=== PATIENT | male | born 1975 | race Caucasian/White ===

== ENCOUNTER 2018-01-07 14:08 | Inpatient (IN) | payer BC ==
[2018-01-07] MEDS: IV NORMAL SALINE 1000ML BAG 1,000 ML IV (15:04)
[2018-01-07] MEDS: FOSPHENYTOIN IV (15:05)
[2018-01-07] MEDS: NORMAL SALINE IV (15:05)
[2018-01-07 15:09] LABS: ADD MAN DIFF? NO
[2018-01-07 15:13] LABS: BASO % 0 % (0-3); EOS # 0.1 x10^3/uL (0.0-0.7); EOS % 1 % (0-3); HEMATOCRIT 41.2 % (39.0-53.0); HEMOGLOBIN 13.9 g/dL (13.0-17.5); LYMPH # 0.7 x10^3/uL (1.0-4.8); LYMPH % 10 % (24-48); MEAN CORPUSCULAR HEMOGLOBIN 34 pg (25-35); MEAN CORPUSCULAR HGB CONC 34 g/dL (31-37); MEAN CORPUSCULAR VOLUME 101 fL (79-100); MONO # 0.5 x10^3/uL (0.0-1.1); MONO % 8 % (0-9); NEUT # 5.2 x10^3uL (1.8-7.7); NEUT % 81 % (31-73); PLATELET COUNT 101 x10^3/uL (140-400); RED CELL DISTRIBUTION WIDTH 12.9 % (11.5-14.5); WHITE BLOOD COUNT 6.5 x10^3/uL (4.0-11.0)
[2018-01-07 15:24] LABS: ANION GAP 22 (6-14); BLOOD UREA NITROGEN 7 mg/dL (8-26); CALCIUM 9.5 mg/dL (8.5-10.1); CARBON DIOXIDE 20 mmol/L (21-32); CHLORIDE 90 mmol/L (98-107); CREATININE 1.3 mg/dL (0.7-1.3); GFR 60.5; GLUCOSE 253 mg/dL (70-99); POTASSIUM 3.8 mmol/L (3.5-5.1); SODIUM 132 mmol/L (136-145)
[2018-01-07 15:28] LABS: SALIC < 2.8 mg/dL (2.8-20.0)
[2018-01-07 15:29] LABS: ACETAMIN < 2 mcg/ml (10-30); ETHANOL < 10 mg/dL (0-10)
[2018-01-07 15:30] LABS: ALBUMIN 4.6 g/dL (3.4-5.0); ALK PHOS 80 U/L (46-116); ALT (SGPT) 73 U/L (16-63); AST (SGOT) 100 U/L (15-37); DIRECT BILIRUBIN 0.4 mg/dL (0.0-0.2); TOTAL BILIRUBIN 2.1 mg/dL (0.2-1.0); TOTAL PROTEIN 8.1 g/dL (6.4-8.2)
[2018-01-07 15:35] LABS: BILIRUBIN,URINE NEGATIVE (NEG); CLARITY,URINE CLEAR; COLOR,URINE YELLOW; GLUCOSE,URINE 500 mg/dL (NEG); NITRITE,URINE NEGATIVE (NEG); PH,URINE 7.5; PROTEIN,URINE 100 mg/dL (NEG-TRACE); UROBILINOGEN,URINE 0.2 mg/dL (0.2 mg/dL)
[2018-01-07 15:45] LABS: AMPHETAMINE/METHAMPHETAMINE NEG (NEG); BARBITURATES NEG (NEG); BENZODIAZEPINES NEG (NEG); CANNABINOIDS NEG (NEG); COCAINE NEG (NEG); ETHANOL, URINE NEG (NEG); METHADONE NEG (NEG); OPIATES NEG (NEG); PHENCYCLIDINE NEG (NEG)
[2018-01-07 15:53] LABS: LACTIC ACID 12.2 mmol/L (0.4-2.0)
[2018-01-07 15:58] LABS: BACTERIA,URINE 0 /HPF (0-FEW); RBC,URINE OCC /HPF (0-2); WBC,URINE OCC /HPF (0-4)
[2018-01-07 15:59] LABS: HYALINE CASTS, URINE MODERATE /HPF
[2018-01-07] MEDS ORDERED: ONDANSETRON PF 4 MG/2 ML VIAL. IV ×2 (16:00→17:00)
[2018-01-07 16:01] LABS: MAGNESIUM 1.9 mg/dL (1.8-2.4)
[2018-01-07 16:01] LABS: PHOSPHORUS 4.1 mg/dL (2.6-4.7)
[2018-01-07 16:02] LABS: AMMONIA 98 mcmol/L (11-34)
[2018-01-07 16:29] LABS: BASE EXCESS ABG -1 mmol/L (-3-3); HCO3 ABG 24 mmol/L (21-28); PCO2 ABG 38 mmHg (35-46); PH ABG 7.41 (7.35-7.45); PO2 ABG 79 mmHg (75-108); SAT O2 ABG 95 % (92-99)
[2018-01-07 16:31] LABS: FIO2 ABG 21
[2018-01-07] MEDS ORDERED: IOHEXOL 300 MG/ML 100ML VIAL. IV (16:45)
[2018-01-07] MEDS ORDERED: CONTRAST GIVEN MC (16:45)
[2018-01-07 16:53] LABS: LIPASE 124 U/L (73-393)
[2018-01-07] MEDS ORDERED: DOCUSATE SODIUM 100 MG CAPSULE. PO (17:00)
[2018-01-07] MEDS ORDERED: ALBUTEROL SULFATE 2.5 MG/3 ML NEBU. NEB (17:00)
[2018-01-07] MEDS ORDERED: hydrALAZINE 20 MG/ML VIAL. IVP (17:00)
[2018-01-07 17:08] LABS: LACTIC ACID 5.2 mmol/L (0.4-2.0)
[2018-01-07] MEDS: GADOBUTROL 7.5 MMOL/7.5 ML VIAL IV (18:09)
[2018-01-07] MEDS: MULTIVIT INFUSN,ADULT 4,VIT K 10 ML, THIAMINE 100 MG, FOLIC ACID 1 MG in IV DEXTROSE 5%... IV (18:45)
[2018-01-07] MEDS: MORPHINE SULFATE 4 MG/ML DISP.SYRIN. IV ×2 (18:52→21:25)
[2018-01-07 19:08] LABS: TROPONINI < 0.017 ng/mL (0.000-0.055)
[2018-01-07 19:11] LABS: CKMB INDEX 0.4 % (0-4); CKMB MASS 0.8 ng/mL (0.0-3.6); CREATINE KINASE 187 U/L (39-308)
[2018-01-07 19:13] LABS: VITAMIN-B12 987 pg/mL (247-911)
[2018-01-07 19:20] LABS: LACTIC ACID 1.8 mmol/L (0.4-2.0)
[2018-01-07] MEDS: levETIRAcetam 500 MG TABLET PO (19:52)
[2018-01-07] MEDS: oxyCODONE/APAP 5/325 1 TAB TABLET PO (19:52)
[2018-01-07] MEDS: FAMOTIDINE 20 MG/2 ML VIAL IVP (19:52)
[2018-01-07 23:37] LABS: TROPONINI < 0.017 ng/mL (0.000-0.055)
[2018-01-08] MEDS: oxyCODONE/APAP 5/325 1 TAB TABLET PO (02:12)
[2018-01-08 03:56] LABS: ADD MAN DIFF? NO
[2018-01-08 04:12] LABS: BASO % 1 % (0-3); EOS # 0.1 x10^3/uL (0.0-0.7); EOS % 2 % (0-3); HEMATOCRIT 32.2 % (39.0-53.0); HEMOGLOBIN 11.1 g/dL (13.0-17.5); LYMPH % 26 % (24-48); MEAN CORPUSCULAR HEMOGLOBIN 34 pg (25-35); MEAN CORPUSCULAR HGB CONC 34 g/dL (31-37); MEAN CORPUSCULAR VOLUME 99 fL (79-100); MONO # 0.5 x10^3/uL (0.0-1.1); MONO % 15 % (0-9); NEUT % 56 % (31-73); PLATELET COUNT 64 x10^3/uL (140-400); RED BLOOD COUNT 3.26 x10^6/uL (4.30-5.70); RED CELL DISTRIBUTION WIDTH 12.8 % (11.5-14.5); WHITE BLOOD COUNT 3.6 x10^3/uL (4.0-11.0)
[2018-01-08 04:24] LABS: ANION GAP 6 (6-14); BLOOD UREA NITROGEN 4 mg/dL (8-26); CALCIUM 8.8 mg/dL (8.5-10.1); CARBON DIOXIDE 29 mmol/L (21-32); CHLORIDE 102 mmol/L (98-107); CREATININE 0.8 mg/dL (0.7-1.3); GLUCOSE 130 mg/dL (70-99); POTASSIUM 3.2 mmol/L (3.5-5.1); SODIUM 137 mmol/L (136-145)
[2018-01-08 04:38] LABS: ALBUMIN 3.6 g/dL (3.4-5.0); ALK PHOS 52 U/L (46-116); ALT (SGPT) 50 U/L (16-63); AST (SGOT) 50 U/L (15-37); DIRECT BILIRUBIN 0.4 mg/dL (0.0-0.2); TOTAL BILIRUBIN 2.3 mg/dL (0.2-1.0); TOTAL PROTEIN 6.6 g/dL (6.4-8.2)
[2018-01-08] MEDS: POTASSIUM CL 20MEQ D5-0.9%NACL 1,000 ML IV ×3 (04:52→23:08)
[2018-01-08] MEDS: MULTIVIT INFUSN,ADULT 4,VIT K 10 ML, THIAMINE 100 MG, FOLIC ACID 1 MG in IV DEXTROSE 5%... IV (08:22)
[2018-01-08] MEDS: levETIRAcetam 500 MG TABLET PO ×2 (08:24→20:23)
[2018-01-08] MEDS: traMADol 50 MG TABLET PO ×2 (09:24→18:07)
[2018-01-08] MEDS: LORazepam 1 MG TABLET PO ×2 (11:46→20:23)
[2018-01-08] MEDS ORDERED: MINERAL OIL/PETROLATUM,WHITE OPHTH OINT 3.5GM TUBE. OU (16:45)
[2018-01-08 18:18] LABS: MRSA BY PCR Negative (Negative)
[2018-01-08] MEDS: FAMOTIDINE 20 MG/2 ML VIAL IVP (20:23)
[2018-01-09] MEDS: traMADol 50 MG TABLET PO ×3 (00:12→17:55)
[2018-01-09] MEDS: POTASSIUM CL 20MEQ D5-0.9%NACL 1,000 ML IV ×2 (00:13→20:21)
[2018-01-09] MEDS: LORazepam 1 MG TABLET PO ×3 (04:39→20:21)
[2018-01-09] MEDS: oxyCODONE/APAP 5/325 1 TAB TABLET PO ×3 (04:39→23:17)
[2018-01-09] MEDS: levETIRAcetam 500 MG TABLET PO ×2 (07:59→20:21)
[2018-01-09] MEDS: ACETAMINOPHEN 325 MG TABLET. PO (07:59)
[2018-01-09] MEDS: MULTIVIT INFUSN,ADULT 4,VIT K 10 ML, THIAMINE 100 MG, FOLIC ACID 1 MG in IV DEXTROSE 5%... IV (09:58)
[2018-01-10 05:21] LABS: ADD MAN DIFF? NO
[2018-01-10 05:32] LABS: BASO % 1 % (0-3); EOS # 0.2 x10^3/uL (0.0-0.7); EOS % 5 % (0-3); HEMATOCRIT 32.4 % (39.0-53.0); HEMOGLOBIN 11.2 g/dL (13.0-17.5); LYMPH # 1.1 x10^3/uL (1.0-4.8); LYMPH % 34 % (24-48); MEAN CORPUSCULAR HEMOGLOBIN 35 pg (25-35); MEAN CORPUSCULAR HGB CONC 35 g/dL (31-37); MEAN CORPUSCULAR VOLUME 101 fL (79-100); MONO # 0.5 x10^3/uL (0.0-1.1); MONO % 14 % (0-9); NEUT # 1.5 x10^3uL (1.8-7.7); NEUT % 47 % (31-73); PLATELET COUNT 69 x10^3/uL (140-400); RED BLOOD COUNT 3.22 x10^6/uL (4.30-5.70); RED CELL DISTRIBUTION WIDTH 12.8 % (11.5-14.5); WHITE BLOOD COUNT 3.3 x10^3/uL (4.0-11.0)
[2018-01-10] MEDS: POTASSIUM CL 20MEQ D5-0.9%NACL 1,000 ML IV (05:42)
[2018-01-10] MEDS: traMADol 50 MG TABLET PO ×2 (05:43→14:42)
[2018-01-10 05:47] LABS: ANION GAP 7 (6-14); BLOOD UREA NITROGEN 2 mg/dL (8-26); CALCIUM 9.3 mg/dL (8.5-10.1); CARBON DIOXIDE 29 mmol/L (21-32); CHLORIDE 104 mmol/L (98-107); CREATININE 0.8 mg/dL (0.7-1.3); GLUCOSE 118 mg/dL (70-99); POTASSIUM 3.5 mmol/L (3.5-5.1); SODIUM 140 mmol/L (136-145)
[2018-01-10] MEDS: FOLIC ACID 1 MG TABLET. PO (08:13)
[2018-01-10] MEDS: levETIRAcetam 500 MG TABLET PO (08:13)
[2018-01-10] MEDS: THIAMINE 100 MG TABLET. PO (08:13)
[2018-01-10] MEDS: oxyCODONE/APAP 5/325 1 TAB TABLET PO (11:42)
[2018-01-10] MEDS: LORazepam 1 MG TABLET PO (13:22)
== END 2018-01-10 15:00 | disposition home or self-care (01) | DRG 896 ==
LOC: ER 14:08 → 6 SOUTH 01-08 18:00 → 1 WEST ICU 15:30
DX: F10.239 Alcohol dependence with withdrawal, unspecified (principal); J96.01 Acute respiratory failure with hypoxia; G92 Toxic encephalopathy; D69.6 Thrombocytopenia, unspecified; E87.2 Acidosis; R17 Unspecified jaundice; R65.10 Systemic inflammatory response syndrome (SIRS) of non-infectious origin without acute organ dysfunction; S42.92XA Fracture of left shoulder girdle, part unspecified, initial encounter for closed fracture; S42.122A Displaced fracture of acromial process, left shoulder, initial encounter for closed fracture; F17.210 Nicotine dependence, cigarettes, uncomplicated; J44.9 Chronic obstructive pulmonary disease, unspecified; S00.03XA Contusion of scalp, initial encounter; R74.0 Nonspecific elevation of levels of transaminase and lactic acid dehydrogenase [LDH]; W10.9XXA Fall (on) (from) unspecified stairs and steps, initial encounter; Z79.899 Other long term (current) drug therapy; Z82.49 Family history of ischemic heart disease and other diseases of the circulatory system; Y93.89 Activity, other specified; Y92.89 Other specified places as the place of occurrence of the external cause; Y99.8 Other external cause status
CPT/HCPCS: 36415; 36600; 51702; 70450; 70553; 71045; 71260; 72125; 74177; 80048; 80076; 80307; 80329; 81001; 82140; 82553; 82607; 82805; 83605; 83690; 83735; 84100; 84484; 85025; 87641; 93005; 95816; 96374; 96375; 99291; 99292; A9585; G0480; J2060; J2270; J7030; Q2009; S0028

== ENCOUNTER 2021-12-18 10:36 | Inpatient (IN) | payer SELFPAY ==
[2021-12-18] VITALS (9 sets, daily range): BP systolic 125–145; BP diastolic 86–103
[~2021-12-18] VITALS: Ht 172.7 cm; Wt 60.8 kg
[~2021-12-18 10:36] MED LIST: LEVE500T56 PO; LORA0.5T96 PO; TRAM50TA PO
[2021-12-18] MEDS ORDERED: IV NORMAL SALINE 1000ML BAG 1,000 ML IV ONE (11:00)
--- NOTE | 2021-12-18 11:10 | EKG ---
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
[2021-12-18 11:13] LABS: CALCIUM 9.9 mg/dL (8.5-10.1); CREATININE 1.8 mg/dL (0.7-1.3); GFR 40.8; POTASSIUM 4.2 mmol/L (3.5-5.1)
[2021-12-18 11:20] LABS: BASO # 0.1 x10^3/uL (0.0-0.2); BASO % 1 % (0-3); EOS % 0 % (0-3); HEMATOCRIT 38.7 % (39.0-53.0); HEMOGLOBIN 12.7 g/dL (13.0-17.5); LYMPH # 0.6 x10^3/uL (1.0-4.8); LYMPH % 5 % (24-48); MEAN CORPUSCULAR HEMOGLOBIN 32 pg (25-35); MEAN CORPUSCULAR HGB CONC 33 g/dL (31-37); MEAN CORPUSCULAR VOLUME 98 fL (79-100); MONO # 0.5 x10^3/uL (0.0-1.1); MONO % 4 % (0-9); NEUT # 12.1 x10^3/uL (1.8-7.7); NEUT % 91 % (31-73); PLATELET COUNT 182 x10^3/uL (140-400); RED BLOOD COUNT 3.95 x10^6/uL (4.30-5.70); RED CELL DISTRIBUTION WIDTH 14.8 % (11.5-14.5); WHITE BLOOD COUNT 13.4 x10^3/uL (4.0-11.0)
[2021-12-18 11:23] LABS: ALBUMIN 4.5 g/dL (3.4-5.0); ALBUMIN/GLOBULIN RATIO 0.9 (1.0-1.7); TOTAL BILIRUBIN 1.4 mg/dL (0.2-1.0); TOTAL PROTEIN 9.3 g/dL (6.4-8.2)
[2021-12-18 11:27] LABS: BARBITURATES NEG (NEG); BENZODIAZEPINES POS (NEG); CANNABINOIDS NEG (NEG); COCAINE NEG (NEG); METHADONE NEG (NEG); OPIATES NEG (NEG); PHENCYCLIDINE NEG (NEG)
[2021-12-18 11:30] LABS: AMPHETAMINE/METHAMPHETAMINE NEG (NEG)
[2021-12-18] MEDS ORDERED: MULTIVIT INFUSN,ADULT 4,VIT K 10 ML, THIAMINE INJ 100 MG, FOLIC ACID INJ 1 MG in IV NOR... IV ONE (11:30)
--- NOTE | 2021-12-18 11:54 | RAD ---
PQRS Compliance Statement: One or more of the following individualized dose reduction techniques were utilized for this examinat ion: 1. Automated exposure control 2. Adjustment of the mA and/or kV according to patient size 3. Use of iterative reconstruction technique CT HEAD AND CERVICAL SPINE WITHOUT CONTRAST History: Reason: intoxicated, having a seizure, found on floor, ams Comparison: CT head and cervical spine without contrast, January 07, 2018. Procedure: Axial images are obtained of the head from the skull base through the vertex without IV co ntrast. Noncontrast helical CT of the cervical spine was performed. Axial, sagittal, and coronal rec onstructions were obtained. Findings: The ventricles and sulci are normal for the patient's age. No mass-effect, midline shift, hemorrhage or obvious acute infarction is identified. Basilar cistern s are patent. Bone windows demonstrate no significant calvarial abnormality. The visualized paranasal sinuses are clear. Mastoid air cells are well aerated. There is no evidence of acute fracture or acute malalignment of the cervical spine. The facet joints are intact. The vertebral body height and alignment are maintained. No disc space na rrowing is seen. There is degenerative endplate spurring in the cervical spine. There is mildly comminuted, nondisplaced fracture of the medial left clavicle. Fracture is age-indete rminate, the fracture lines are well seen but there is mild sclerosis suggesting the fracture may be subacute. Visualized soft tissues of the neck demonstrate no significant abnormalities. The visualized lung api radha are clear. IMPRESSION: 1. No acute intracranial abnormality. 2. No acute fracture of the cervical spine. 3. There is age-indeterminate mildly comminuted, nondisplaced fracture of the medial left clavicle. Electronically signed by: Omari Negrete MD (12/18/2021 11:52 AM) [id number]
--- NOTE | 2021-12-18 11:54 | PHYS DOC ---
Past Medical History Past Medical History: Alcoholism, Seizure Additional Past Medical Histor: ALCOHOL ABUSE Past Surgical History: Other Additional Past Surgical Histo: UNKNOWN Smoking Status: Unknown if ever smoked Alcohol Use: Heavy Drug Use: None General Adult EDM: Chief Complaint: SEIZURE HPI: HPI: Patient is a 46 year old male who was found on the floor this morning by girlfriend having a seizure. Patient had a history of seizure disorder, he was recently taken off Keppra and put on a different medication for seizures but he has not taken it yet. Patient also has been drinking alcohol heavily. Patient girlfriend stated that patient would have seizure after he went through a drinking binge. EMS stated that he was found on the floor with vomitus all over his body. Patient was given 5 mg Versed IM by EMS on route. Upon arrival to E , patient was sedated. He was covered with vomitus, sweaty, tachycardic. Review of Systems: Review of Systems: Not able to obtain at this time due to patient condition Heart Score: C/O Chest Pain: N/A Risk Factors: Risk Factors: DM, Current or recent (<one month) smoker, HTN, HLP, family history of CAD, obesity. Risk Scores: Score 0 - 3: 2.5% MACE over next 6 weeks - Discharge Home Score 4 - 6: 20.3% MACE over next 6 weeks - Admit for Clinical Observation Score 7 - 10: 72.7% MACE over next 6 weeks - Early Invasive Strategies Current Medications: Current Medications Medications (Trade) Dose Ordered Sig/Candi Start Time Stop Time Status Last Admin Dose Admin Lorazepam (Ativan Inj) 1 mg 1X ONCE 12/18/21 11:30 12/18/21 11:31 DC 12/18/21 11:47 1 MG Multivitamins 10 ml/Thiamine HCl 100 mg/Folic Acid 1 mg/Sodium Chloride 1,011.2 ml @ 1,000.088 mls/hr 1X ONCE 12/18/21 11:30 12/18/21 12:30 Ondansetron HCl (Zofran) 4 mg PRN Q8HRS PRN 12/18/21 12:00 12/19/21 11:59 Sodium Chloride 1,000 ml @ 100 mls/hr Q10H 12/18/21 12:00 12/19/21 11:59 Allergies: Allergies: Allergies Coded Allergies Type Severity Reaction Last Updated Verified No Known Drug Allergies 04/20/14 No Physical Exam: PE: Constitutional: Well developed, well nourished, no acute distress, non-toxic appearance. [] HENT: Normocephalic, right side forehead and eyebrown area with skin contusion, bilateral external ears normal, oropharynx moist, no oral exudates, nose n ormal. [] Eyes: PERRLA, EOMI, conjunctiva normal, no discharge. [] Neck: Normal range of motion, no tenderness, supple, no stridor. [] Cardiovascular: Sinus tachycardia, regular rhythm, no murmur [] Lungs & Thorax: Bilateral breath sounds clear to auscultation [] Abdomen: Bowel sounds normal, soft, no tenderness, no masses, no pulsatile masses. [] Skin: Warm, dry, no erythema, no rash. [] Back: No tenderness, no CVA tenderness. [] Extremities: No tenderness, no cyanosis, no clubbing, ROM intact, no edema. [] Neurologic:patient was able to open his eyes to look around, observed moving all extremities. Psychologic:not able to evaluate at this time due to condition. Current Patient Data: Labs: Laboratory Tests Test 12/18/21 10:45 12/18/21 10:50 12/18/21 11:12 White Blood Count 13.4 x10^3/uL (4.0-11.0) H Red Blood Count 3.95 x10^6/uL (4.30-5.70) L Hemoglobin 12.7 g/dL (13.0-17.5) L Hematocrit 38.7 % (39.0-53.0) L Mean Corpuscular Volume 98 fL (79-100) Mean Corpuscular Hemoglobin 32 pg (25-35) Mean Corpuscular Hemoglobin Concent 33 g/dL (31-37) Red Cell Distribution Width 14.8 % (11.5-14.5) H Platelet Count 182 x10^3/uL (140-400) Neutrophils (%) (Auto) 91 % (31-73) H Lymphocytes (%) (Auto) 5 % (24-48) L Monocytes (%) (Auto) 4 % (0-9) Eosinophils (%) (Auto) 0 % (0-3) Basophils (%) (Auto) 1 % (0-3) Neutrophils # (Auto) 12.1 x10^3/uL (1.8-7.7) H Lymphocytes # (Auto) 0.6 x10^3/uL (1.0-4.8) L Monocytes # (Auto) 0.5 x10^3/uL (0.0-1.1) Eosinophils # (Auto) 0.0 x10^3/uL (0.0-0.7) Basophils # (Auto) 0.1 x10^3/uL (0.0-0.2) Sodium Level 136 mmol/L (136-145) Potassium Level 4.2 mmol/L (3.5-5.1) Chloride Level 94 mmol/L (98-107) L Carbon Dioxide Level 17 mmol/L (21-32) L Anion Gap 25 (6-14) H Blood Urea Nitrogen 9 mg/dL (8-26) Creatinine 1.8 mg/dL (0.7-1.3) H Estimated GFR (Cockcroft-Gault) 40.8 BUN/Creatinine Ratio 5 (6-20) L Glucose Level 148 mg/dL (70-99) H Calcium Level 9.9 mg/dL (8.5-10.1) Magnesium Level 2.0 mg/dL (1.8-2.4) Total Bilirubin 1.4 mg/dL (0.2-1.0) H Aspartate Amino Transferase (AST) 236 U/L (15-37) H Alanine Aminotransferase (ALT) 85 U/L (16-63) H Alkaline Phosphatase 121 U/L (46-116) H Troponin I High Sensitivity 24 ng/L (4-75) Total Protein 9.3 g/dL (6.4-8.2) H Albumin 4.5 g/dL (3.4-5.0) Albumin/Globulin Ratio 0.9 (1.0-1.7) L Lipase 197 U/L (73-393) Ethyl Alcohol Level < 10 mg/dL (0-10) Glucose (Fingerstick) 124 mg/dL (70-99) H Urine Opiates Screen Neg (NEG) Urine Methadone Screen Neg (NEG) Urine Barbiturates Neg (NEG) Urine Phencyclidine Screen Neg (NEG) Urine Amphetamine/Methamphetamine Neg (NEG) Urine Benzodiazepines Screen Pos (NEG) Urine Cocaine Screen Neg (NEG) Urine Cannabinoids Screen Neg (NEG) Urine Ethyl Alcohol Pos (NEG) Laboratory Tests 12/18/21 10:45 Laboratory Tests 12/18/21 10:45 Vital Signs: Vital Signs Date Time Temp Pulse Resp B/P (MAP) Pulse Ox O2 Delivery O2 Flow Rate FiO2 12/18/21 10:36 98.2 150 16 126/80 (95) 100 Nasal Cannula 3.0 98.2 EKG: EKG: EKG was done at 1043, heart rate 153 bpm, sinus tachycardia, no ST segment elevation. Radiology/Procedures: Radiology/Procedures: [][facility] [address] [place] [address] IMAGING REPORT Signed PATIENT: SHERINE MCINTOSH ACCOUNT: [id number] : 1975 LOCATION: ER AGE: 46 SEX: M EXAM STATUS: REG ER ORD. PHYSICIAN: CRAIG CAMPOS DO REASON: intoxicated, having a seizure, found on floor, ams PROCEDURE: CT HEAD AND CERVICAL SPINE WO PQRS Compliance Statement: One or more of the following individualized dose reduction techniques were utilized for this examination: 1. Automated exposure control 2. Adjustment of the mA and/or kV according to patient size 3. Use of iterative reconstruction technique CT HEAD AND CERVICAL SPINE WITHOUT CONTRAST History: Reason: intoxicated, having a seizure, found on floor, ams Comparison: CT head and cervical spine without contrast, January 07, 2018. Procedure: Axial images are obtained of the head from the skull base through the vertex without IV contrast. Noncontrast helical CT of the cervical spine was performed. Axial, sagittal, and coronal reconstructions were obtained. Findings: The ventricles and sulci are normal for the patient's age. No mass-effect, midline shift, hemorrhage or obvious acute infarction is identified. Basilar cisterns are patent. Bone windows demonstrate no significant calvarial abnormality. The visualized paranasal sinuses are clear. Mastoid air cells are well aerated. There is no evidence of acute fracture or acute malalignment of the cervical spine. The facet joints are intact. The vertebral body height and alignment are m aintained. No disc space narrowing is seen. There is degenerative endplate spurring in the cervical spine. There is mildly comminuted, nondisplaced fracture of the medial left clavicle. Fracture is age-indeterminate, the fracture lines are well seen but there is mild sclerosis suggesting the fracture may be subacute. Visualized soft tissues of the neck demonstrate no significant abnormalities. T he visualized lung apices are clear. IMPRESSION: 1. No acute intracranial abnormality. 2. No acute fracture of the cervical spine. 3. There is age-indeterminate mildly comminuted, nondisplaced fracture of the medial left clavicle. Electronically signed by: Omari Negrete MD (12/18/2021 11:52 AM) [id number] DICTATED and SIGNED BY: OMARI NEGRETE MD DATE: 12/18/21 [id number] 0 Course & Med Decision Making: Course & Med Decision Making Pertinent Labs and Imaging studies reviewed. (See chart for details) Patient is a 46-year-old male who was brought here by EMS from home after he fell on the floor having a seizure. Patient had a history of seizure disorder, he supposed to be on antiseizure medication but he did not take any medication for it. Patient also has history of withdrawal seizure from alcohol. Patient did went through a recent alcohol binge drinking. Patient was given Versed injection by EMS on route. Patient is still confused at this time, he was able to protect his airway. Patient will be admitted to hospital for further evaluation and treatment. Discussed with hospital on-call Dr. Viera who agreed to admit the patient. Vidhi Disclaimer: Vidhi Disclaimer: This electronic medical record was generated, in whole or in part, using a voice recognition dictation system. Departure Departure Impression: Primary Impression: Alcohol withdrawal seizure Disposition: ADMITTED INPATIENT Admitting Physician: LISA (DR. VIERA) Condition: STABLE Referrals: NISREEN PANIAGUA MD (PCP) CRAIG CAMPOS DO Dec 18, 2021 11:54
[2021-12-18] MEDS ORDERED: ONDANSETRON PF 4 MG/2 ML VIAL. IVP PRN (12:00)
--- NOTE | 2021-12-18 12:59 | HP ---
DATE OF SERVICE: 12/18/2021 ADMIT DATE: 12/18/2021 CHIEF COMPLAINT: Seizure. HISTORY OF PRESENT ILLNESS: The patient is a pleasant 46-year-old male who has history of heavy alcohol abuse and seizures. His girlfriend found him today on the floor seizing. She called EMS. When they arrived, he was vomiting and had vomit all over his body. They gave him 5 mg of Versed and brought him to the ER. I discussed the case with the ER physician. We are going to admit the patient to the ICU and consult Neurology. PAST MEDICAL HISTORY: 1. Alcoholism. 2. Seizures. 3. Noncompliance (he quit taking his seizure medications). 4. Chronic pain. 5. Anxiety. ALLERGIES: None. FAMILY HISTORY: Diabetes. SOCIAL HISTORY: He drinks. 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 He lives at home with his girlfriend. MEDICATIONS: Reviewed. He is on Ultram, Keppra and Ativan (his girlfriend states that they changed his Keppra to a different medication but he apparently did not start taking it and has not taken any seizure meds for some time). REVIEW OF SYSTEMS: Unable to obtain. He is postictal. PHYSICAL EXAMINATION: VITALS: Within normal limits and are stable. GENERAL: He is postictal. HEENT: He has some slight bruising and swelling to the right eye where he struck his head. MUSCULOSKELETAL: Well developed, well nourished, good range of motion. ENDOCRINE: No thyromegaly was palpated. LYMPHATICS: No cervical chain or axillary nodes were noted. HEMATOPOIETIC: No bruising. NECK: Supple, no JVD, no thyromegaly was noted. LUNGS: Clear to auscultation in all lung kim without rhonchi or wheezing. HEART: RRR, S1, S2 present. Peripheral pulses intact, no obvious murmurs were noted. ABDOMEN: Soft, nontender. Positive bowel sounds, no organomegaly, normal bowel sounds. EXTREMITIES: Without any cyanosis, clubbing, or edema. Pedal pulses intact, Homans sign is negative. NEUROLOGIC: He is postictal. PSYCHIATRIC: He is postictal. SKIN: No ulcerations or rashes, good skin turgor, no jaundice. VASCULAR: Good capillary refill, neurovascular bundle appears to be intact. LABORATORY DATA: Drug screen negative other than alcohol. White count 13, hemoglobin 13, platelets 182. Electrolytes: Sodium 136, potassium 4.2, chloride 94, bicarbonate 17, BUN 9, creatinine 1.8, glucose 148. CT of the head showed no acute disease, incidental finding of age indeterminate mildly comminuted nondisplaced fracture of the medial left clavicle. ASSESSMENT AND PLAN: Seizures, suspect alcohol withdrawal seizures with incidental finding of chronic renal insufficiency, leukocytosis, anemia and clavicle fracture. The patient has been admitted to the ICU. Alcohol withdrawal protocol. We will start some empiric IV antibiotics. Consult Neurology. IV fluids, home meds. Deep venous thrombosis prophylaxis. Full code. Consult Nephrology. Prognosis guarded. IRINA/DARLIN DR: Viry TID: [id number]
[2021-12-18] MEDS ORDERED: cloNIDine HCL 0.1 MG TABLET PO PRN (14:15)
[2021-12-18] MEDS ORDERED: diphenhydrAMINE 50 MG/ML VIAL IVP PRN (14:15)
[2021-12-18] MEDS ORDERED: chlordiazePOXIDE HCL 25 MG CAPSULE PO PRN ×2 (14:15)
[2021-12-18] MEDS ORDERED: chlordiazePOXIDE HCL 25 MG CAPSULE PO SCH (14:15)
[2021-12-18] MEDS ORDERED: HALOPERIDOL LACTATE 5 MG/ML VIAL. IVP PRN (14:15)
[2021-12-18] MEDS: IV NORMAL SALINE 1000ML BAG 1,000 ML IV SCH ×2 (17:04→21:01)
[2021-12-19] VITALS (13 sets, daily range): BP systolic 110–121; BP diastolic 68–96
[2021-12-19 04:44] LABS: ALBUMIN 3.5 g/dL (3.4-5.0); ALBUMIN/GLOBULIN RATIO 0.9 (1.0-1.7); CALCIUM 8.6 mg/dL (8.5-10.1); CREATININE 0.9 mg/dL (0.7-1.3); GFR 90.8; PHOSPHORUS 3.2 mg/dL (2.6-4.7); POTASSIUM 3.8 mmol/L (3.5-5.1); TOTAL BILIRUBIN 2.1 mg/dL (0.2-1.0); TOTAL PROTEIN 7.5 g/dL (6.4-8.2)
[2021-12-19] MEDS: IV NORMAL SALINE 1000ML BAG 1,000 ML IV SCH (08:00)
[2021-12-19] MEDS: MULTIVIT INFUSN,ADULT 4,VIT K 10 ML, THIAMINE INJ 100 MG, FOLIC ACID INJ 1 MG in IV NOR... IV SCH (08:56)
--- NOTE | 2021-12-19 08:57 | PDOC2 ---
NEUROLOGY CONSULT Date of Service DOS: DATE: 12/19/21 TIME: 08:46 Reason for Consult Reason for Consult: Seizures Referring Physician Referring Physician: Dr. Viera Source Source: Chart review, Patient History of Present Illness History of Present Illness The patient is a 46-year-old right-handed male who had a seizure yesterday m marc. He has history of seizures, recently taken off levetiracetam and started on brivaracetam, but he has not been taking it. He says that he gets his care at but I checked the chart and there is no instance of him there. His primary physician is in the [facility] system. He says that he has had unequal pupils since a seizure several months ago. I last saw him 4 years ago when he was admitted with alcohol-related seizures. Electroencephalogram was negative at that time. Patient drinks 15 cans of beer a day but mainly has seizures when he gets into hard liquor. Patient has had no additional seizures here. 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 Current Medications Current Medications Current Medications Sodium Chloride 1,000 ml @ 1,000 mls/hr 1X ONCE IV Last administered on 12/18/21at 10:52; Start 12/18/21 at 11:00; Stop 12/18/21 at 11:59; Status DC Lorazepam (Ativan Inj) 1 mg 1X ONCE IVP Last administered on 12/18/21at 11:47; Start 12/18/21 at 11:30; Stop 12/18/21 at 11:31; Status DC Multivitamins 10 ml/Thiamine HCl 100 mg/Folic Acid 1 mg/Sodium Chloride 1,011.2 ml @ 1,000.088 mls/hr 1X ONCE IV Last administered on 12/18/21at 12:03; Start 12/18/21 at 11:30; Stop 12/18/21 at 12:30; Status DC Ondansetron HCl (Zofran) 4 mg PRN Q8HRS PRN IVP NAUSEA/VOMITING; Start 12/18/21 at 12:00; Stop 12/19/21 at 11:59 Sodium Chloride 1,000 ml @ 100 mls/hr Q10H IV Last administered on 12/18/21at 21:01; Start 12/18/21 at 12:00; Stop 12/19/21 at 11:59 Lorazepam (Ativan Inj) 2 mg PRN Q4HRS PRN IVP WITHDRAWAL IRRITABILITY; Start 12/18/21 at 12:45 Multivitamins 10 ml/Thiamine HCl 100 mg/Folic Acid 1 mg/Sodium Chloride 1,011.2 ml @ 100 mls/ hr DAILY IV ; Start 12/19/21 at 09:00; Stop 12/22/21 at 19:07 Lorazepam (Ativan) 2 mg Q6H PO ; Start 12/18/21 at 14:15; Stop 12/18/21 at 17:32; Status DC Chlordiazepoxide (Librium) 25 mg Q6H PO ; Start 12/18/21 at 14:15; Stop 12/18/21 at 17:32; Status DC Chlordiazepoxide (Librium) 50 mg PRN Q1HR PRN PO For CIWA 8-14; Start 12/18/21 at 14:15 Chlordiazepoxide (Librium) 100 mg PRN Q1HR PRN PO For CIWA 15 or greater; Start 12/18/21 at 14:15 Lorazepam (Ativan Inj) 2 mg PRN Q1HR PRN IV For CIWA 8-14 Last administered on 12/19/21at 05:43; Start 12/18/21 at 14:15 Lorazepam (Ativan Inj) 4 mg PRN Q1HR PRN IV For CIWA 15 or greater Last administered on 12/18/21at 22:26; Start 12/18/21 at 14:15 Haloperidol Lactate (Haldol Inj) 5 mg PRN Q4HRS PRN IVP Hallucinatns,Confusn,Delirium; Start 12/18/21 at 14:15 Diphenhydramine HCl (Benadryl) 25 mg PRN Q15MIN PRN IVP EPS symptoms 2'Haldol admin; Start 12/18/21 at 14:15 Clonidine HCl (Catapres) 0.1 mg PRN Q1HR PRN PO SBP > 180 or DBP > 100, MRX3; Start 12/18/21 at 14:15 Lorazepam (Ativan Inj) 2 mg PRN Q15MIN PRN IV SEE COMMENTS; Start 12/18/21 at 14:15 Lorazepam (Ativan Inj) 4 mg PRN Q15MIN PRN IV SEE COMMENTS; Start 12/18/21 at 14:15 Lorazepam (Ativan) 2 mg PRN Q6HRS PRN PO ALCOHOL WITHDRAWAL; Start 12/18/21 at 17:30 Active Scripts Active Ativan (Lorazepam) 0.5 Mg Tablet 0.5 Mg PO BID PRN Tramadol Hcl 50 Mg Tablet 50 Mg PO PRN Q6HRS PRN Keppra (Levetiracetam) 500 Mg Tablet 500 Mg PO BID Allergies Allergies: Coded Allergies: No Known Drug Allergies (Unverified , 04/20/14) ROS Review of System Negative for fever, chills, weight loss, shortness of breath, chest pain, indigestion, hematochezia, melena, and dysuria. Full 14-point review of systems is negative. Physical Exam Physical Examination General: Well-developed, well-nourished, white male, in no acute distress HEENT: Normocephalic andatraumatic.Temporal arteriespulsatile and nontender. Neck: Supple without bruit, no meningismus Musculoskeletal: Stability:see neurologic. Gait exam:see neurologic. Tone:see neurologic.Strength:see neurologic. Neurological: Mental Status: orientation, memory, attention span/concentration, language, fund of knowledge: Voice is very soft, hesitates to give answers, nurse says this is the most alert he has seen the patient. He knows that he is in the hospital but does not know its name, does not know the date. Cranial Nerves:Pupils: Anisocoria, left pupil larger than right, both react. Extraocular movements areintact, visual kim are full to confrontation. Facial sensation is normal. There is no facial asymmetry. Vestibulo-ocular reflex is intact. Palate elevates and tongue protrudes in midline. All other cranial related problems are negative except as mentioned before.Reflexes:2+ and symmetric with flexor plantar responses. Motor:4/5 strength with normal tone and bulk. Minimal tremulousness. Coordination:Finger-nose finger and ujis-vu-phaw testing are normal. Rapid alternating movements and fine finger movements are intact. Gait:not tested. Sensory:Normal pinprick, vibration, light touch, proprioception. Vitals VITALS Vital Signs Date Time Temp Pulse Resp B/P (MAP) Pulse Ox O2 Delivery O2 Flow Rate FiO2 12/19/21 08:00 Room Air 12/19/21 07:00 60 18 118/69 (85) 100 12/19/21 04:00 99.7 99.7 12/18/21 10:36 3.0 Labs Labs Laboratory Tests Test 12/18/21 10:45 12/18/21 10:50 12/18/21 11:12 12/19/21 04:00 White Blood Count 13.4 x10^3/uL (4.0-11.0) Red Blood Count 3.95 x10^6/uL (4.30-5.70) Hemoglobin 12.7 g/dL (13.0-17.5) Hematocrit 38.7 % (39.0-53.0) Mean Corpuscular Volume 98 fL (79-100) Mean Corpuscular Hemoglobin 32 pg (25-35) Mean Corpuscular Hemoglobin Concent 33 g/dL (31-37) Red Cell Distribution Width 14.8 % (11.5-14.5) Platelet Count 182 x10^3/uL (140-400) Neutrophils (%) (Auto) 91 % (31-73) Lymphocytes (%) (Auto) 5 % (24-48) Monocytes (%) (Auto) 4 % (0-9) Eosinophils (%) (Auto) 0 % (0-3) Basophils (%) (Auto) 1 % (0-3) Neutrophils # (Auto) 12.1 x10^3/uL (1.8-7.7) Lymphocytes # (Auto) 0.6 x10^3/uL (1.0-4.8) Monocytes # (Auto) 0.5 x10^3/uL (0.0-1.1) Eosinophils # (Auto) 0.0 x10^3/uL (0.0-0.7) Basophils # (Auto) 0.1 x10^3/uL (0.0-0.2) Sodium Level 136 mmol/L (136-145) 136 mmol/L (136-145) Potassium Level 4.2 mmol/L (3.5-5.1) 3.8 mmol/L (3.5-5.1) Chloride Level 94 mmol/L (98-107) 99 mmol/L (98-107) Carbon Dioxide Level 17 mmol/L (21-32) 20 mmol/L (21-32) Anion Gap 25 (6-14) 17 (6-14) Blood Urea Nitrogen 9 mg/dL (8-26) 9 mg/dL (8-26) Creatinine 1.8 mg/dL (0.7-1.3) 0.9 mg/dL (0.7-1.3) Estimated GFR (Cockcroft-Gault) 40.8 90.8 BUN/Creatinine Ratio 5 (6-20) 10 (6-20) Glucose Level 148 mg/dL (70-99) 134 mg/dL (70-99) Calcium Level 9.9 mg/dL (8.5-10.1) 8.6 mg/dL (8.5-10.1) Magnesium Level 2.0 mg/dL (1.8-2.4) Total Bilirubin 1.4 mg/dL (0.2-1.0) 2.1 mg/dL (0.2-1.0) Aspartate Amino Transf (AST/SGOT) 236 U/L (15-37) 347 U/L (15-37) Alanine Aminotransferase (ALT/SGPT) 85 U/L (16-63) 102 U/L (16-63) Alkaline Phosphatase 121 U/L (46-116) 68 U/L (46-116) Troponin I High Sensitivity 24 ng/L (4-75) Total Protein 9.3 g/dL (6.4-8.2) 7.5 g/dL (6.4-8.2) Albumin 4.5 g/dL (3.4-5.0) 3.5 g/dL (3.4-5.0) Albumin/Globulin Ratio 0.9 (1.0-1.7) 0.9 (1.0-1.7) Lipase 197 U/L (73-393) Ethyl Alcohol Level < 10 mg/dL (0-10) Glucose (Fingerstick) 124 mg/dL (70-99) Urine Opiates Screen Neg (NEG) Urine Methadone Screen Neg (NEG) Urine Barbiturates Neg (NEG) Urine Phencyclidine Screen Neg (NEG) Urine Amphetamine/Methamphetamine Neg (NEG) Urine Benzodiazepines Screen Pos (NEG) Urine Cocaine Screen Neg (NEG) Urine Cannabinoids Screen Neg (NEG) Urine Ethyl Alcohol Pos (NEG) Phosphorus Level 3.2 mg/dL (2.6-4.7) Laboratory Tests Test 12/18/21 10:45 12/18/21 10:50 12/18/21 11:12 12/19/21 04:00 White Blood Count 13.4 x10^3/uL (4.0-11.0) Red Blood Count 3.95 x10^6/uL (4.30-5.70) Hemoglobin 12.7 g/dL (13.0-17.5) Hematocrit 38.7 % (39.0-53.0) Mean Corpuscular Volume 98 fL (79-100) Mean Corpuscular Hemoglobin 32 pg (25-35) Mean Corpuscular Hemoglobin Concent 33 g/dL (31-37) Red Cell Distribution Width 14.8 % (11.5-14.5) Platelet Count 182 x10^3/uL (140-400) Neutrophils (%) (Auto) 91 % (31-73) Lymphocytes (%) (Auto) 5 % (24-48) Monocytes (%) (Auto) 4 % (0-9) Eosinophils (%) (Auto) 0 % (0-3) Basophils (%) (Auto) 1 % (0-3) Neutrophils # (Auto) 12.1 x10^3/uL (1.8-7.7) Lymphocytes # (Auto) 0.6 x10^3/uL (1.0-4.8) Monocytes # (Auto) 0.5 x10^3/uL (0.0-1.1) Eosinophils # (Auto) 0.0 x10^3/uL (0.0-0.7) Basophils # (Auto) 0.1 x10^3/uL (0.0-0.2) Sodium Level 136 mmol/L (136-145) 136 mmol/L (136-145) Potassium Level 4.2 mmol/L (3.5-5.1) 3.8 mmol/L (3.5-5.1) Chloride Level 94 mmol/L (98-107) 99 mmol/L (98-107) Carbon Dioxide Level 17 mmol/L (21-32) 20 mmol/L (21-32) Anion Gap 25 (6-14) 17 (6-14) Blood Urea Nitrogen 9 mg/dL (8-26) 9 mg/dL (8-26) Creatinine 1.8 mg/dL (0.7-1.3) 0.9 mg/dL (0.7-1.3) Estimated GFR (Cockcroft-Gault) 40.8 90.8 BUN/Creatinine Ratio 5 (6-20) 10 (6-20) Glucose Level 148 mg/dL (70-99) 134 mg/dL (70-99) Calcium Level 9.9 mg/dL (8.5-10.1) 8.6 mg/dL (8.5-10.1) Magnesium Level 2.0 mg/dL (1.8-2.4) Total Bilirubin 1.4 mg/dL (0.2-1.0) 2.1 mg/dL (0.2-1.0) Aspartate Amino Transf (AST/SGOT) 236 U/L (15-37) 347 U/L (15-37) Alanine Aminotransferase (ALT/SGPT) 85 U/L (16-63) 102 U/L (16-63) Alkaline Phosphatase 121 U/L (46-116) 68 U/L (46-116) Troponin I High Sensitivity 24 ng/L (4-75) Total Protein 9.3 g/dL (6.4-8.2) 7.5 g/dL (6.4-8.2) Albumin 4.5 g/dL (3.4-5.0) 3.5 g/dL (3.4-5.0) Albumin/Globulin Ratio 0.9 (1.0-1.7) 0.9 (1.0-1.7) Lipase 197 U/L (73-393) Ethyl Alcohol Level < 10 mg/dL (0-10) Glucose (Fingerstick) 124 mg/dL (70-99) Urine Opiates Screen Neg (NEG) Urine Methadone Screen Neg (NEG) Urine Barbiturates Neg (NEG) Urine Phencyclidine Screen Neg (NEG) Urine Amphetamine/Methamphetamine Neg (NEG) Urine Benzodiazepines Screen Pos (NEG) Urine Cocaine Screen Neg (NEG) Urine Cannabinoids Screen Neg (NEG) Urine Ethyl Alcohol Pos (NEG) Phosphorus Level 3.2 mg/dL (2.6-4.7) Images Images CT HEAD AND CERVICAL SPINE WITHOUT CONTRAST History: Reason: intoxicated, having a seizure, found on floor, ams Comparison: CT head and cervical spine without contrast, January 07, 2018. Procedure: Axial images are obtained of the head from the skull base through the vertex without IV contrast. Noncontrast helical CT of the cervical spine was performed. Axial, sagittal, and coronal reconstructions were obtained. Findings: The ventricles and sulci are normal for the patient's age. No mass-effect, midline shift, hemorrhage or obvious acute infarction is identified. Basilar cisterns are patent. Bone windows demonstrate no significant calvarial abnormality. The visualized paranasal sinuses are clear. Mastoid air cells are well aerated. There is no evidence of acute fracture or acute malalignment of the cervical spine. The facet joints are intact. The vertebral body height and alignment are maintained. No disc space narrowing is seen. There is degenerative endplate spurring in the cervical spine. There is mildly comminuted, nondisplaced fracture of the medial left clavicle. Fracture is age-indeterminate, the fracture lines are well seen but there is mild sclerosis suggesting the fracture may be subacute. Visualized soft tissues of the neck demonstrate no significant abnormalities. The visualized lung apices are clear. IMPRESSION: 1. No acute intracranial abnormality. 2. No acute fracture of the cervical spine. 3. There is age-indeterminate mildly comminuted, nondisplaced fracture of the medial left clavicle. Assessment/Plan Assessment/Plan Impression: Alcohol-related seizures Anisocoria Left clavicle fracture Recommendations: Given his long history of noncompliance and the fact that these are alcohol related, it is pointless to put him on an anticonvulsant. Try to track down outside records regarding the anisocoria, hold off on repeating imaging studies Alcohol withdrawal protocol Home when stable I attempted to reach the significant other and sister Neurology will see as needed over the weekend. Thank you for letting me help with the patient's care. BRIGID MONTEIRO MD Dec 19, 2021 08:57
[2021-12-19] MEDS: POLYMYXIN/TRIMETHOPRIM OPHTH SOLUTION 10ML BOTTLE. OU SCH ×2 (12:50→20:47)
[2021-12-20 03:28] VITALS: BP 122/77
[2021-12-20 08:00] VITALS: BP 112/82
[2021-12-20] MEDS: POLYMYXIN/TRIMETHOPRIM OPHTH SOLUTION 10ML BOTTLE. OU SCH ×2 (09:00→11:48)
[2021-12-20] MEDS: MULTIVIT INFUSN,ADULT 4,VIT K 10 ML, THIAMINE INJ 100 MG, FOLIC ACID INJ 1 MG in IV NOR... IV SCH (09:04)
--- NOTE | 2021-12-20 09:12 | PDOC ---
[employer] PROGRESS NOTE Date of Service DOS: December 19 late entry Chief Complaint Chief Complaint Seizures, suspect alcohol withdrawal seizures with incidental finding of chronic renal insufficiency, leukocytosis, anemia and clavicle fracture. The patient has been admitted to the ICU. Alcohol withdrawal protocol. We will start some empiric IV antibiotics. Consult Neurology. IV fluids, home meds. Deep venous thrombosis prophylaxis. Full code. Consult Nephrology. Prognosis guarded. History of Present Illness History of Present Illness 12/19 Patient evaluated examined at bedside. He remains confused. Asked me if I ring the doorbell before coming in the room. Continue alcohol withdrawal protocol. Okay to transfer out of ICU today Vitals/I&O Vitals/I&O: Vital Signs Date Time Temp Pulse Resp B/P (MAP) Pulse Ox O2 Delivery O2 Flow Rate FiO2 12/20/21 08:00 98.5 110 20 112/82 (92) 100 Room Air 98.5 I & O 12/19/21 12/19/21 12/20/21 15:00 23:00 07:00 Intake Total 0 ml 0 ml Balance 0 ml 0 ml Physical Exam General: Other (Lethargic not following commands difficult to awaken) Heart: Regular rate Lungs: Clear, Other Abdomen: Normal bowel sounds, Soft Extremities: No edema, Normal pulses Skin: No significant lesion Assessment and Plan Assessmemt and Plan Problems Medical Problems: (1) Alcohol withdrawal seizure Status: Acute Comment Review of Relevant I have reviewed the following items maegan (where applicable) has been applied. Medications: Current Medications Medications (Trade) Dose Ordered Sig/Candi Route PRN Reason Start Time Stop Time Status Last Admin Dose Admin Polymyxin/ Trimethoprim Sulfate (Polytrim) 1 drop BID OU 12/19/21 12:30 12/19/21 12:50 Justifications for Admission Other Justification RE ARIZA MD Dec 20, 2021 09:12
[2021-12-20 11:56] VITALS: BP 110/79
[2021-12-20 16:00] VITALS: BP 119/79
[2021-12-20] MEDS ORDERED: THIAMINE INJ 100 MG in IV DEXTROSE 5% 50 ML IV ONE (17:00)
--- NOTE | 2021-12-20 17:02 | PDOC ---
[employer] PROGRESS NOTE Date of Service DOS: DATE: 12/20/21 TIME: 17:01 Chief Complaint Chief Complaint alcohol withdrawal seizures delirium from withdrawl, cont CIWA, still odd behavior chronic renal insufficiency, leukocytosis, anemia and clavicle fracture. History of Present Illness History of Present Illness 12/20, confused wtih odd behavior, lying prone and having strange statement eval by Neurology. IV fluids, home meds. Deep venous thrombosis prophylaxis. Full code. Consult Nephrology. Prognosis guarded. 12/19 Patient evaluated examined at bedside. He remains confused. Asked me if I ring the doorbell before coming in the room. Continue alcohol withdrawal protocol. Okay to transfer out of ICU today Vitals/I&O Vitals/I&O: Vital Signs Date Time Temp Pulse Resp B/P (MAP) Pulse Ox O2 Delivery O2 Flow Rate FiO2 12/20/21 16:00 98.9 107 20 119/79 (92) 100 Room Air 98.9 I & O 12/19/21 12/19/21 12/20/21 15:00 23:00 07:00 Intake Total 0 ml 0 ml Balance 0 ml 0 ml Physical Exam General: Other (Lethargic not following commands difficult to awaken) Heart: Regular rate Lungs: Clear, Other Abdomen: Normal bowel sounds, Soft Extremities: No edema, Normal pulses Skin: No significant lesion Assessment and Plan Assessmemt and Plan Problems Medical Problems: (1) Alcohol withdrawal seizure Status: Acute Comment Review of Relevant I have reviewed the following items maegan (where applicable) has been applied. Justifications for Admission Other Justification ASIF BAUER MD Dec 20, 2021 17:02
[2021-12-20] MEDS: FOLIC/VIT B COMP W-C (RENAL) TABLET. PO SCH (17:11)
[2021-12-20] MEDS: THIAMINE 100 MG TABLET. PO SCH (17:11)
[2021-12-20 19:00] VITALS: BP 118/85
[2021-12-20] MEDS: ENOXAPARIN 40 MG/0.4 ML SYRINGE. SQ SCH (20:22)
[2021-12-20] MEDS: QUEtiapine 25 MG TABLET. PO SCH (20:22)
[2021-12-20 23:00] VITALS: BP 94/63
[2021-12-21 03:00] VITALS: BP 106/81
[2021-12-21 07:00] VITALS: BP 108/77
[2021-12-21] MEDS: THIAMINE 100 MG TABLET. PO SCH (08:14)
[2021-12-21] MEDS: FOLIC/VIT B COMP W-C (RENAL) TABLET. PO SCH (08:14)
[2021-12-21] MEDS: POLYMYXIN/TRIMETHOPRIM OPHTH SOLUTION 10ML BOTTLE. OU SCH ×2 (08:17→08:49)
[2021-12-21 08:25] LABS: BASO % 1 % (0-3); EOS # 0.1 x10^3/uL (0.0-0.7); EOS % 3 % (0-3); HEMOGLOBIN 11.1 g/dL (13.0-17.5); LYMPH % 29 % (24-48); MEAN CORPUSCULAR HEMOGLOBIN 32 pg (25-35); MEAN CORPUSCULAR HGB CONC 33 g/dL (31-37); MEAN CORPUSCULAR VOLUME 98 fL (79-100); MONO # 0.3 x10^3/uL (0.0-1.1); MONO % 9 % (0-9); NEUT % 58 % (31-73); PLATELET COUNT 71 x10^3/uL (140-400); RED BLOOD COUNT 3.48 x10^6/uL (4.30-5.70); RED CELL DISTRIBUTION WIDTH 14.4 % (11.5-14.5); WHITE BLOOD COUNT 3.4 x10^3/uL (4.0-11.0)
[2021-12-21 08:36] LABS: ALBUMIN 2.9 g/dL (3.4-5.0); ALBUMIN/GLOBULIN RATIO 0.8 (1.0-1.7); CALCIUM 8.7 mg/dL (8.5-10.1); CREATININE 0.6 mg/dL (0.7-1.3); TOTAL BILIRUBIN 1.6 mg/dL (0.2-1.0); TOTAL PROTEIN 6.7 g/dL (6.4-8.2)
[2021-12-21 08:37] LABS: PROTHROMBIN TIME PATIENT 13.7 SEC (11.7-14.0)
[2021-12-21 08:40] LABS: POTASSIUM 2.9 mmol/L (3.5-5.1)
[2021-12-21 10:00] VITALS: BP 100/73
[2021-12-21] MEDS ORDERED: POTASSIUM CHLORIDE 20 MEQ TABLET.ER. PO ONE ×2 (10:00→14:00)
--- NOTE | 2021-12-21 12:47 | PDOC ---
[employer] PROGRESS NOTE Date of Service DOS: DATE: 12/21/21 TIME: 12:45 Chief Complaint Chief Complaint alcohol withdrawal with seizures delirium from withdrawl, cont CIWA, still odd behavior chronic renal insufficiency, leukocytosis, anemia and clavicle fracture. weakness, acquired odd behavior, may have baseline neurocognitive defect, slow processing, thiamine given, poss chronic encephalopathy History of Present Illness History of Present Illness 12/21,. better today, not lying prone, sitting up and eating, has walked with assist to bathroom, weak, fall risk, PT and OT ordered needs a shower he wants to DC home, I told him if he can walk he can go, still weak, minor intention tremor cont ativan 12/20, confused wtih odd behavior, lying prone and having strange statement eval by Neurology. IV fluids, home meds. Deep venous thrombosis prophylaxis. Full code. Consult Nephrology. Prognosis guarded. 12/19 Patient evaluated examined at bedside. He remains confused. Asked me if I ring the doorbell before coming in the room. Continue alcohol withdrawal protocol. Okay to transfer out of ICU today Vitals/I&O Vitals/I&O: Vital Signs Date Time Temp Pulse Resp B/P (MAP) Pulse Ox O2 Delivery O2 Flow Rate FiO2 12/21/21 10:00 97.7 103 20 100/73 (82) 100 Room Air 97.7 I & O 12/20/21 12/20/21 12/21/21 15:00 23:00 07:00 Intake Total 360 ml 60 ml Balance 360 ml 60 ml Physical Exam Physical Exam: neuro, asterixis, 3 beat nystagmus, General: Alert, Oriented X3, Cooperative, Other (Lethargic not following commands difficult to awaken) Heart: Regular rate Lungs: Clear, Other Abdomen: Normal bowel sounds, Soft Extremities: No edema, Normal pulses Skin: No significant lesion Labs Labs: Laboratory Tests Test 12/21/21 07:30 White Blood Count 3.4 x10^3/uL (4.0-11.0) Red Blood Count 3.48 x10^6/uL (4.30-5.70) Hemoglobin 11.1 g/dL (13.0-17.5) Hematocrit 34.0 % (39.0-53.0) Mean Corpuscular Volume 98 fL (79-100) Mean Corpuscular Hemoglobin 32 pg (25-35) Mean Corpuscular Hemoglobin Concent 33 g/dL (31-37) Red Cell Distribution Width 14.4 % (11.5-14.5) Platelet Count 71 x10^3/uL (140-400) Neutrophils (%) (Auto) 58 % (31-73) Lymphocytes (%) (Auto) 29 % (24-48) Monocytes (%) (Auto) 9 % (0-9) Eosinophils (%) (Auto) 3 % (0-3) Basophils (%) (Auto) 1 % (0-3) Neutrophils # (Auto) 2.0 x10^3/uL (1.8-7.7) Lymphocytes # (Auto) 1.0 x10^3/uL (1.0-4.8) Monocytes # (Auto) 0.3 x10^3/uL (0.0-1.1) Eosinophils # (Auto) 0.1 x10^3/uL (0.0-0.7) Basophils # (Auto) 0.0 x10^3/uL (0.0-0.2) Prothrombin Time 13.7 SEC (11.7-14.0) Prothromb Time International Ratio 1.1 (0.8-1.1) Sodium Level 138 mmol/L (136-145) Potassium Level 2.9 mmol/L (3.5-5.1) Chloride Level 102 mmol/L (98-107) Carbon Dioxide Level 25 mmol/L (21-32) Anion Gap 11 (6-14) Blood Urea Nitrogen 9 mg/dL (8-26) Creatinine 0.6 mg/dL (0.7-1.3) Estimated GFR (Cockcroft-Gault) 145.0 BUN/Creatinine Ratio 15 (6-20) Glucose Level 100 mg/dL (70-99) Calcium Level 8.7 mg/dL (8.5-10.1) Total Bilirubin 1.6 mg/dL (0.2-1.0) Aspartate Amino Transf (AST/SGOT) 257 U/L (15-37) Alanine Aminotransferase (ALT/SGPT) 157 U/L (16-63) Alkaline Phosphatase 51 U/L (46-116) Total Protein 6.7 g/dL (6.4-8.2) Albumin 2.9 g/dL (3.4-5.0) Albumin/Globulin Ratio 0.8 (1.0-1.7) Assessment and Plan Assessmemt and Plan Problems Medical Problems: (1) Alcohol withdrawal seizure Status: Acute Comment Review of Relevant I have reviewed the following items maegan (where applicable) has been applied. Medications: Current Medications Medications (Trade) Dose Ordered Sig/Candi Route PRN Reason Start Time Stop Time Status Last Admin Dose Admin Thiamine Mononitrate (Vitamin B-1) 100 mg DAILY PO 12/20/21 15:00 12/21/21 08:14 Quetiapine Fumarate (SEROquel) 25 mg HS PO 12/20/21 21:00 12/20/21 20:22 Vitamin B Complex/ Vitamin C (Rimma-Jennifer) 1 tab DAILY PO 12/20/21 15:15 12/21/21 08:14 Enoxaparin Sodium (Lovenox 40mg Syringe) 40 mg Q24H SQ 12/20/21 21:00 12/20/21 20:22 Thiamine HCl 100 mg/Dextrose 51 ml @ 102 mls/hr 1X ONCE IV 12/20/21 17:00 12/20/21 17:29 DC 12/20/21 17:15 Potassium Chloride (Klor-Con) 40 meq 1X ONCE PO 12/21/21 10:00 12/21/21 10:01 DC 12/21/21 10:18 Justifications for Admission Other Justification ASIF BAUER MD Dec 21, 2021 12:47
[2021-12-21 15:00] VITALS: BP 101/73
[2021-12-21 19:00] VITALS: BP 101/73
[2021-12-21] MEDS: ENOXAPARIN 40 MG/0.4 ML SYRINGE. SQ SCH (21:05)
[2021-12-21] MEDS: QUEtiapine 25 MG TABLET. PO SCH (21:05)
[2021-12-22 03:00] VITALS: BP 104/75
[2021-12-22 07:00] VITALS: BP 93/65
[2021-12-22] MEDS: FOLIC/VIT B COMP W-C (RENAL) TABLET. PO SCH (08:12)
[2021-12-22] MEDS: POLYMYXIN/TRIMETHOPRIM OPHTH SOLUTION 10ML BOTTLE. OU SCH (08:12)
[2021-12-22] MEDS: THIAMINE 100 MG TABLET. PO SCH (08:12)
--- NOTE | 2021-12-22 10:32 | PDOC ---
PROGRESS NOTES Date of Service DATE: 12/22/21 TIME: 10:27 Assessment Problems Medical Problems: (1) Alcohol withdrawal seizure Status: Acute Alcohol-related seizures Anisocoria, resolved on today's exam Left clavicle fracture No outside records found Plan Given his long history of noncompliance and the fact that these are alcohol related, it is pointless to put him on an anticonvulsant. Alcohol withdrawal protocol Home when stable Subjective Denies pain Objective Vital Signs Date Time Temp Pulse Resp B/P (MAP) Pulse Ox O2 Delivery O2 Flow Rate FiO2 12/22/21 08:00 Room Air 12/22/21 07:00 98.7 116 18 93/65 (74) 99 98.7 Intake and Output 12/22/21 07:00 Intake Total 150 ml Balance 150 ml Intake Oral 150 ml # Voids 1 PHYSICAL EXAM Physical Exam: Alert. Knows he is in the hospital, does not know the date. PERRL. No longer has anisocoria EOMI. CN: no focal findings. Muscle tone: normal. Muscle strength: 4/5 DTR: 2+ Plantar reflex: Flexor Gait: not examined in bed. Sensory exam: no abnormal findings. No cerebellar signs elicited. No tremulousness Review of Relevant I have reviewed the following items maegan (where applicable) has been applied. Labs Laboratory Tests Test 12/21/21 07:30 White Blood Count 3.4 x10^3/uL (4.0-11.0) Red Blood Count 3.48 x10^6/uL (4.30-5.70) Hemoglobin 11.1 g/dL (13.0-17.5) Hematocrit 34.0 % (39.0-53.0) Mean Corpuscular Volume 98 fL (79-100) Mean Corpuscular Hemoglobin 32 pg (25-35) Mean Corpuscular Hemoglobin Concent 33 g/dL (31-37) Red Cell Distribution Width 14.4 % (11.5-14.5) Platelet Count 71 x10^3/uL (140-400) Neutrophils (%) (Auto) 58 % (31-73) Lymphocytes (%) (Auto) 29 % (24-48) Monocytes (%) (Auto) 9 % (0-9) Eosinophils (%) (Auto) 3 % (0-3) Basophils (%) (Auto) 1 % (0-3) Neutrophils # (Auto) 2.0 x10^3/uL (1.8-7.7) Lymphocytes # (Auto) 1.0 x10^3/uL (1.0-4.8) Monocytes # (Auto) 0.3 x10^3/uL (0.0-1.1) Eosinophils # (Auto) 0.1 x10^3/uL (0.0-0.7) Basophils # (Auto) 0.0 x10^3/uL (0.0-0.2) Prothrombin Time 13.7 SEC (11.7-14.0) Prothromb Time International Ratio 1.1 (0.8-1.1) Sodium Level 138 mmol/L (136-145) Potassium Level 2.9 mmol/L (3.5-5.1) Chloride Level 102 mmol/L (98-107) Carbon Dioxide Level 25 mmol/L (21-32) Anion Gap 11 (6-14) Blood Urea Nitrogen 9 mg/dL (8-26) Creatinine 0.6 mg/dL (0.7-1.3) Estimated GFR (Cockcroft-Gault) 145.0 BUN/Creatinine Ratio 15 (6-20) Glucose Level 100 mg/dL (70-99) Calcium Level 8.7 mg/dL (8.5-10.1) Total Bilirubin 1.6 mg/dL (0.2-1.0) Aspartate Amino Transf (AST/SGOT) 257 U/L (15-37) Alanine Aminotransferase (ALT/SGPT) 157 U/L (16-63) Alkaline Phosphatase 51 U/L (46-116) Total Protein 6.7 g/dL (6.4-8.2) Albumin 2.9 g/dL (3.4-5.0) Albumin/Globulin Ratio 0.8 (1.0-1.7) Medications Current Medications Sodium Chloride 1,000 ml @ 1,000 mls/hr 1X ONCE IV Last administered on 12/18/21at 10:52; Start 12/18/21 at 11:00; Stop 12/18/21 at 11:59; Status DC Lorazepam (Ativan Inj) 1 mg 1X ONCE IVP Last administered on 12/18/21at 11:47; Start 12/18/21 at 11:30; Stop 12/18/21 at 11:31; Status DC Multivitamins 10 ml/Thiamine HCl 100 mg/Folic Acid 1 mg/Sodium Chloride 1,011.2 ml @ 1,000.088 mls/hr 1X ONCE IV Last administered on 12/18/21at 12:03; Start 12/18/21 at 11:30; Stop 12/18/21 at 12:30; Status DC Ondansetron HCl (Zofran) 4 mg PRN Q8HRS PRN IVP NAUSEA/VOMITING; Start 12/18/21 at 12:00; Stop 12/19/21 at 11:59; Status DC Sodium Chloride 1,000 ml @ 100 mls/hr Q10H IV Last administered on 12/18/21at 21:01; Start 12/18/21 at 12:00; Stop 12/19/21 at 11:59; Status DC Lorazepam (Ativan Inj) 2 mg PRN Q4HRS PRN IVP WITHDRAWAL IRRITABILITY; Start 12/18/21 at 12:45 Multivitamins 10 ml/Thiamine HCl 100 mg/Folic Acid 1 mg/Sodium Chloride 1,011.2 ml @ 100 mls/ hr DAILY IV Last administered on 12/20/21at 09:04; Start 12/19/21 at 09:00; Stop 12/20/21 at 15:05; Status DC Lorazepam (Ativan) 2 mg Q6H PO ; Start 12/18/21 at 14:15; Stop 12/18/21 at 17:32; Status DC Chlordiazepoxide (Librium) 25 mg Q6H PO ; Start 12/18/21 at 14:15; Stop 12/18/21 at 17:32; Status DC Chlordiazepoxide (Librium) 50 mg PRN Q1HR PRN PO For CIWA 8-14; Start 12/18/21 at 14:15 Chlordiazepoxide (Librium) 100 mg PRN Q1HR PRN PO For CIWA 15 or greater; Start 12/18/21 at 14:15 Lorazepam (Ativan Inj) 2 mg PRN Q1HR PRN IV For CIWA 8-14 Last administered on 12/21/21at 14:36; Start 12/18/21 at 14:15 Lorazepam (Ativan Inj) 4 mg PRN Q1HR PRN IV For CIWA 15 or greater Last administered on 12/21/21at 21:05; Start 12/18/21 at 14:15 Haloperidol Lactate (Haldol Inj) 5 mg PRN Q4HRS PRN IVP Hallucinatns,Confusn,Delirium; Start 12/18/21 at 14:15 Diphenhydramine HCl (Benadryl) 25 mg PRN Q15MIN PRN IVP EPS symptoms 2'Haldol admin; Start 12/18/21 at 14:15 Clonidine HCl (Catapres) 0.1 mg PRN Q1HR PRN PO SBP > 180 or DBP > 100, MRX3; Start 12/18/21 at 14:15 Lorazepam (Ativan Inj) 2 mg PRN Q15MIN PRN IV SEE COMMENTS; Start 12/18/21 at 14:15; Stop 12/20/21 at 15:28; Status DC Lorazepam (Ativan Inj) 4 mg PRN Q15MIN PRN IV SEE COMMENTS; Start 12/18/21 at 14:15; Stop 12/20/21 at 15:29; Status DC Lorazepam (Ativan) 2 mg PRN Q6HRS PRN PO ALCOHOL WITHDRAWAL; Start 12/18/21 at 17:30 Polymyxin/ Trimethoprim Sulfate (Polytrim) 1 drop BID OU Last administered on 12/22/21at 08:12; Start 12/19/21 at 12:30 Thiamine Mononitrate (Vitamin B-1) 100 mg DAILY PO Last administered on 12/22/21at 08:12; Start 12/20/21 at 15:00 Enoxaparin Sodium (Lovenox Per Pharmacy Prophylaxis Dosing) 1 each PRN DAILY PRN MC SEE COMMENTS; Start 12/20/21 at 15:00 Quetiapine Fumarate (SEROquel) 25 mg HS PO Last administered on 12/21/21at 21:05; Start 12/20/21 at 21:00 Vitamin B Complex/ Vitamin C (Rimma-Jennifer) 1 tab DAILY PO Last administered on 12/22/21at 08:12; Start 12/20/21 at 15:15 Enoxaparin Sodium (Lovenox 40mg Syringe) 40 mg Q24H SQ Last administered on 12/21/21at 21:05; Start 12/20/21 at 21:00 Thiamine HCl 100 mg/Dextrose 51 ml @ 102 mls/hr 1X ONCE IV Last administered on 12/20/21at 17:15; Start 12/20/21 at 17:00; Stop 12/20/21 at 17:29; Status DC Potassium Chloride (Klor-Con) 40 meq 1X ONCE PO Last administered on 12/21/21at 10:18; Start 12/21/21 at 10:00; Stop 12/21/21 at 10:01; Status DC Potassium Chloride (Klor-Con) 40 meq 1X ONCE PO Last administered on 12/21/21at 14:00; Start 12/21/21 at 14:00; Stop 12/21/21 at 14:01; Status DC Active Scripts Active Ativan (Lorazepam) 0.5 Mg Tablet 0.5 Mg PO BID PRN Tramadol Hcl 50 Mg Tablet 50 Mg PO PRN Q6HRS PRN Keppra (Levetiracetam) 500 Mg Tablet 500 Mg PO BID Vitals/I & O Vital Sign - Last 24 Hours 12/21/21 12/21/21 12/21/21 12/21/21 15:00 19:00 20:13 23:05 Temp 98.6 98.3 98.6 98.3 Pulse 99 104 Resp 20 20 18 B/P (MAP) 101/73 (82) 101/73 (82) Pulse Ox 100 93 O2 Delivery Room Air Room Air Room Air 12/22/21 12/22/21 12/22/21 03:00 07:00 08:00 Temp 98.3 98.7 98.3 98.7 Pulse 103 116 Resp 18 18 B/P (MAP) 104/75 (85) 93/65 (74) Pulse Ox 97 99 O2 Delivery Room Air Room Air Room Air Intake and Output 12/21/21 12/21/21 12/22/21 15:00 23:00 07:00 Intake Total 0 ml 60 ml 90 ml Balance 0 ml 60 ml 90 ml Justicifation of Admission Dx: Justifications for Admission: Justification of Admission Dx: N/A BRIGID MONTEIRO MD Dec 22, 2021 10:32
[2021-12-22 11:00] VITALS: BP 107/79
--- NOTE | 2021-12-22 11:51 | PDOC ---
[facility] PROGRESS NOTE Date of Service DOS: DATE: 12/22/21 TIME: 11:47 Chief Complaint Chief Complaint alcohol withdrawal with seizures delirium from withdrawl, cont CIWA, still odd behavior chronic renal insufficiency, leukocytosis, anemia and clavicle fracture. weakness, acquired odd behavior, may have baseline neurocognitive defect, slow processing, thiamine given, poss chronic encephalopathy History of Present Illness History of Present Illness 12/22: Patient states he feels well today. I observed him walking in his room into the bathroom and back to the bed without issue. Per neurology, long history of noncompliance and given this is alcohol related, it is pointless to put him on an anticonvulsant. Will discharge patient home with family care. G reater than 30 minutes related in the discharge of this patient. 12/21,. better today, not lying prone, sitting up and eating, has walked with assist to bathroom, weak, fall risk, PT and OT ordered needs a shower he wants to DC home, I told him if he can walk he can go, still weak, minor intention tremor cont ativan 12/20, confused wtih odd behavior, lying prone and having strange statement eval by Neurology. IV fluids, home meds. Deep venous thrombosis prophylaxis. Full code. Consult Nephrology. Prognosis guarded. 12/19 Patient evaluated examined at bedside. He remains confused. Asked me if I ring the doorbell before coming in the room. Continue alcohol withdrawal protocol. Okay to transfer out of ICU today Vitals/I&O Vitals/I&O: Vital Signs Date Time Temp Pulse Resp B/P (MAP) Pulse Ox O2 Delivery O2 Flow Rate FiO2 12/22/21 08:00 Room Air 12/22/21 07:00 98.7 116 18 93/65 (74) 99 98.7 I & O 12/21/21 12/21/21 12/22/21 15:00 23:00 07:00 Intake Total 0 ml 60 ml 90 ml Balance 0 ml 60 ml 90 ml Physical Exam General: Alert, Oriented X3, Cooperative, Other (Lethargic not following commands difficult to awaken) Heart: Regular rate Lungs: Clear, Other Abdomen: Normal bowel sounds, Soft Extremities: No edema, Normal pulses Skin: No significant lesion Assessment and Plan Assessmemt and Plan Problems Medical Problems: (1) Alcohol withdrawal seizure Status: Acute Comment Review of Relevant I have reviewed the following items maegan (where applicable) has been applied. Medications: Current Medications Medications (Trade) Dose Ordered Sig/Candi Route PRN Reason Start Time Stop Time Status Last Admin Dose Admin Potassium Chloride (Klor-Con) 40 meq 1X ONCE PO 12/21/21 14:00 12/21/21 14:01 DC 12/21/21 14:00 Justifications for Admission Other Justification HENNA MEJIA MD Dec 22, 2021 11:51
--- NOTE | 2021-12-22 11:57 | PDOC3 ---
Discharge Summary Visit Information Date of Admission: Dec 18, 2021 Date of Discharge: Dec 22, 2021 Final Diagnosis Problems Medical Problems: (1) Alcohol withdrawal seizure Status: Acute Brief Hospital Course Allergies Allergies Coded Allergies Type Severity Reaction Last Updated Verified No Known Drug Allergies 04/20/14 No Vital Signs Vital Signs Date Time Temp Pulse Resp B/P (MAP) Pulse Ox O2 Delivery O2 Flow Rate FiO2 12/22/21 08:00 Room Air 12/22/21 07:00 98.7 116 18 93/65 (74) 99 98.7 Lab Results Laboratory Tests Test 12/21/21 07:30 White Blood Count 3.4 x10^3/uL (4.0-11.0) Red Blood Count 3.48 x10^6/uL (4.30-5.70) Hemoglobin 11.1 g/dL (13.0-17.5) Hematocrit 34.0 % (39.0-53.0) Mean Corpuscular Volume 98 fL (79-100) Mean Corpuscular Hemoglobin 32 pg (25-35) Mean Corpuscular Hemoglobin Concent 33 g/dL (31-37) Red Cell Distribution Width 14.4 % (11.5-14.5) Platelet Count 71 x10^3/uL (140-400) Neutrophils (%) (Auto) 58 % (31-73) Lymphocytes (%) (Auto) 29 % (24-48) Monocytes (%) (Auto) 9 % (0-9) Eosinophils (%) (Auto) 3 % (0-3) Basophils (%) (Auto) 1 % (0-3) Neutrophils # (Auto) 2.0 x10^3/uL (1.8-7.7) Lymphocytes # (Auto) 1.0 x10^3/uL (1.0-4.8) Monocytes # (Auto) 0.3 x10^3/uL (0.0-1.1) Eosinophils # (Auto) 0.1 x10^3/uL (0.0-0.7) Basophils # (Auto) 0.0 x10^3/uL (0.0-0.2) Prothrombin Time 13.7 SEC (11.7-14.0) Prothromb Time International Ratio 1.1 (0.8-1.1) Sodium Level 138 mmol/L (136-145) Potassium Level 2.9 mmol/L (3.5-5.1) Chloride Level 102 mmol/L (98-107) Carbon Dioxide Level 25 mmol/L (21-32) Anion Gap 11 (6-14) Blood Urea Nitrogen 9 mg/dL (8-26) Creatinine 0.6 mg/dL (0.7-1.3) Estimated GFR (Cockcroft-Gault) 145.0 BUN/Creatinine Ratio 15 (6-20) Glucose Level 100 mg/dL (70-99) Calcium Level 8.7 mg/dL (8.5-10.1) Total Bilirubin 1.6 mg/dL (0.2-1.0) Aspartate Amino Transf (AST/SGOT) 257 U/L (15-37) Alanine Aminotransferase (ALT/SGPT) 157 U/L (16-63) Alkaline Phosphatase 51 U/L (46-116) Total Protein 6.7 g/dL (6.4-8.2) Albumin 2.9 g/dL (3.4-5.0) Albumin/Globulin Ratio 0.8 (1.0-1.7) Brief Hospital Course Mr. Oconnell is a 46 old male who presented with: alcohol withdrawal with seizures delirium from withdrawl, cont CIWA, still odd behavior chronic renal insufficiency, leukocytosis, anemia and clavicle fracture. weakness, acquired odd behavior, may have baseline neurocognitive defect, slow processing, thiamine given, poss chronic encephalopathy History of Present Illness History of Present Illness The patient is a pleasant 46-year-old male who has history of heavy alcohol abuse and seizures. His girlfriend found him today on the floor seizing. She called EMS. When they arrived, he was vomiting and had vomit all over his body. They gave him 5 mg of Versed and brought him to the ER. I discussed the case with the ER physician. We are going to admit the patient to the ICU and consult Neurology. 12/22: Patient states he feels well today. I observed him walking in his room into the bathroom and back to the bed without issue. Per neurology, long history of noncompliance and given this is alcohol related, it is pointless to put him on an anticonvulsant. Will discharge patient home with family care. Greater than 30 minutes related in the discharge of this patient. 12/21,. better today, not lying prone, sitting up and eating, has walked with assist to bathroom, weak, fall risk, PT and OT ordered needs a shower he wants to DC home, I told him if he can walk he can go, still weak, minor intention tremor cont ativan 12/20, confused wtih odd behavior, lying prone and having strange statement eval by Neurology. IV fluids, home meds. Deep venous thrombosis prophylaxis. Full code. Consult Nephrology. Prognosis guarded. 12/19 Patient evaluated examined at bedside. He remains confused. Asked me if I ring the doorbell before coming in the room. Continue alcohol withdrawal protocol. Okay to transfer out of ICU today Discharge Information Condition at Discharge: Improved Disposition/Orders: D/C to Home No Active Prescriptions or Reported Meds Justicifation of Admission Dx: Justifications for Admission: Justification of Admission Dx: N/A HENNA MEJIA MD Dec 22, 2021 11:56
== END 2021-12-22 13:20 | disposition home or self-care (01) | DRG 101 ==
LOC: ER 10:36 → 1 WEST ICU 11:48 → 5 NORTH 12-19 15:11
PROVIDERS: ADMIT Internal Medicine; ATTEND Internal Medicine
DX: G40.909 Epilepsy, unspecified, not intractable, without status epilepticus (principal); F10.239 Alcohol dependence with withdrawal, unspecified; S42.002A Fracture of unspecified part of left clavicle, initial encounter for closed fracture; D64.9 Anemia, unspecified; D72.829 Elevated white blood cell count, unspecified; H57.02 Anisocoria; N18.9 Chronic kidney disease, unspecified; Z82.5 Family history of asthma and other chronic lower respiratory diseases; Z83.3 Family history of diabetes mellitus; Z91.19 Patient's noncompliance with other medical treatment and regimen; F41.9 Anxiety disorder, unspecified; G89.29 Other chronic pain; W18.39XA Other fall on same level, initial encounter; Y93.89 Activity, other specified; Y92.89 Other specified places as the place of occurrence of the external cause; Y99.8 Other external cause status
CPT/HCPCS: 36415; 70450; 72125; 80053; 80307; 82962; 83690; 83735; 84100; 84484; 85025; 85610; 93005; 96361; 96365; 96375; G0480; J1650; J2060; J3411; J3490; J7030; J7060; 97116-GP; 97530-GP; 99285-25; G0378

== ENCOUNTER 2022-02-19 05:58 | Inpatient (IN) | payer SELFPAY ==
[2022-02-19] VITALS (13 sets, daily range): BP systolic 109–144; BP diastolic 69–90
[~2022-02-19] VITALS: Ht 172.7 cm; Wt 57.8 kg
[2022-02-19] MEDS ORDERED: ACETAMINOPHEN 650 MG SUPP.RECT. PR ONE ×2 (06:15→10:15)
[2022-02-19] MEDS ORDERED: IV RINGERS,LACTATED 500ML 1,000 ML IV ONE (06:15)
[2022-02-19 06:30] LABS: BASE EXCESS ABG -6 mmol/L (-3-3); CORRECTED PCO2 ABG 33 mmHg; CORRECTED PH ABG 7.36; CORRECTED PO2 ABG 83 mmHg; HCO3 ABG 18 mmol/L (21-28); PCO2 ABG 30 mmHg (35-46); PO2 ABG 70 mmHg (75-108); SAT O2 ABG 92 % (92-99)
[2022-02-19] MEDS ORDERED: MULTIVIT INFUSN,ADULT 4,VIT K 10 ML, THIAMINE INJ 100 MG, FOLIC ACID INJ 1 MG in IV NOR... IV ONE (06:30)
[2022-02-19] MEDS ORDERED: levETIRAcetam 1,000mg PREMIX 100 ML IV ONE (06:30)
[2022-02-19 06:34] LABS: FIO2 ABG 21
[2022-02-19 06:47] LABS: CALCIUM 9.9 mg/dL (8.5-10.1); CREATININE 1.4 mg/dL (0.7-1.3); GFR 54.6; POTASSIUM 5.4 mmol/L (3.5-5.1)
--- NOTE | 2022-02-19 06:49 | PHYS DOC ---
Past Medical History Past Medical History: Alcoholism, Seizure Additional Past Medical Histor: ALCOHOL ABUSE Past Surgical History: Other Additional Past Surgical Histo: UNKNOWN Smoking Status: Unknown if ever smoked Alcohol Use: Heavy Drug Use: None General Adult EDM: Chief Complaint: WITHDRAWL HPI: HPI: Patient is a 46 year old M who presents with altered mental status, reportedly has not had alcohol in 48 hours. Patient was here 2 months ago for seizures and alcohol withdrawal. Patient reportedly had several seizures at home. He is currently not responding. He is tachycardic. His vital signs are abnormal. He is febrile to 103. Not able to respond to questioning. Review of Systems: Review of Systems: Unable to answer questions due to mental status Heart Score: C/O Chest Pain: No Risk Factors: Risk Factors: DM, Current or recent (<one month) smoker, HTN, HLP, family history of CAD, obesity. Risk Scores: Score 0 - 3: 2.5% MACE over next 6 weeks - Discharge Home Score 4 - 6: 20.3% MACE over next 6 weeks - Admit for Clinical Observation Score 7 - 10: 72.7% MACE over next 6 weeks - Early Invasive Strategies Current Medications: Current Medications Medications (Trade) Dose Ordered Sig/Candi Start Time Stop Time Status Last Admin Dose Admin Acetaminophen (Tylenol Supp) 650 mg 1X ONCE 02/19/22 06:15 02/19/22 06:22 DC 02/19/22 06:36 650 MG Levetiracetam 100 ml @ 400 mls/hr 1X ONCE 02/19/22 06:30 02/19/22 06:44 02/19/22 06:33 400 MLS/HR Lorazepam (Ativan Inj) 4 mg 1X ONCE 02/19/22 06:15 02/19/22 06:16 DC 02/19/22 06:32 4 MG Multivitamins 10 ml/Thiamine HCl 100 mg/Folic Acid 1 mg/Sodium Chloride 1,011.2 ml @ 1,000 mls/ hr 1X ONCE 02/19/22 06:30 02/19/22 07:30 02/19/22 06:36 1,000 MLS/HR Ringer's Solution 1,000 ml @ 1,000 mls/hr 1X ONCE 02/19/22 06:15 02/19/22 07:14 02/19/22 06:15 1,000 MLS/HR Allergies: Allergies: Allergies Coded Allergies Type Severity Reaction Last Updated Verified No Known Drug Allergies 04/20/14 No Physical Exam: PE: Constitutional: obtunded, GCS 6 [] HENT: Normocephalic, left - black eye, bilateral external ears normal, orophar ynx moist, no oral exudates, nose normal. [] Eyes: pupils sluggish, equal, reactive, EOMI, conjunctiva normal, no discharge. [] Neck: Normal range of motion, no tenderness, supple, no stridor. [] Cardiovascular: tachycardia, no murmur [] Lungs & Thorax: Bilateral breath sounds clear to auscultation [] Abdomen: Bowel sounds normal, soft, no tenderness, no masses, no pulsatile masses. [] Skin: Warm, dry, no erythema, no rash. [] Back: No tenderness, no CVA tenderness. [] Extremities: No tenderness, no cyanosis, no clubbing, ROM intact, no edema. [] Neurologic: Alert, responds to painful stimuli, normal motor function, normal sensory function, no focal deficits noted. [] Psychologic: Affect normal, judgement normal, mood normal. [] Current Patient Data: Labs: Laboratory Tests Test 02/19/22 06:30 O2 Saturation 92 % (92-99) Arterial Blood pH 7.40 (7.35-7.45) Arterial Blood pH (Temp corrected) 7.36 Arterial Blood pCO2 at Patient Temp 30 mmHg (35-46) L Arterial Blood pCO2 (Temp correct) 33 mmHg Arterial Blood pO2 at Patient Temp 70 mmHg (75-108) L Arterial Blood pO2 (Temp corrected) 83 mmHg Arterial Blood HCO3 18 mmol/L (21-28) L Arterial Blood Base Excess -6 mmol/L (-3-3) L FiO2 21 Vital Signs: Vital Signs Date Time Temp Pulse Resp B/P (MAP) Pulse Ox O2 Delivery O2 Flow Rate FiO2 02/19/22 06:17 103.1 120 22 153/90 (111) 96 Room Air 103.1 EKG: EKG: Sinus tachycardia Radiology/Procedures: Radiology/Procedures: PATIENT: SHERINE MCINTOSH ACCOUNT: [id number] : 1975 LOCATION: ER AGE: 46 SEX: M EXAM STATUS: REG ER ORD. PHYSICIAN: GAMAL KENNEDY MD REASON: altered mental status PROCEDURE: CT HEAD WO CONTRAST STUDY: CT head without contrast INDICATION: Altered mental status. COMPARISON: 12/18/2021 TECHNIQUE: Axial CT imaging through the head without the use of intravenous contrast. Sagittal and coronal reformats were obtained. One or more of the following individualized dose reduction techniques were utilized for this examination: 1. Automated exposure control 2. Adjustment of the mA and/or kV according to patient size 3. Use of iterative reconstruction technique. FINDINGS: No acute intracranial hemorrhage. No mass effect, midline shift or hydrocephalus. Blanco-white matter differentiation is maintained. Intact calvarium. Normally aerated mastoid air cells and middle ears. Unchanged partially imaged paranasal sinuses with minimal mucosal thickening. IMPRESSION: No acute intracranial abnormality by CT. No change from 12/18/2021. Electronically signed by: LLOYD EISENBERG MD (02/19/2022 7:51 AM) [facility] Impression: Acute alcohol withdrawal Course & Med Decision Making: Course & Med Decision Making Pertinent Labs and Imaging studies reviewed. (See chart for details) 46-year-old male seen and evaluated by myself. Patient with acutely tachycardic vital signs, febrile. Serum labs drawn, urine sent. 1 bag of banana bag and lactated Ringer's ordered. Chart reviewed, 4 mg Ativan administered as well as 1 g of Keppra. Reportedly patient already had several seizures earlier today at home due to alcohol withdrawal. CT head ordered. Patient will likely go to the ICU. Patient given additional 2 mg of Ativan as well as 1 L of normal saline. Remains tachycardic, mental status has improved, patient tracking ocular movements. Recheck 1008: Patient admitted to service of Dr. Viera, patient will go to the ICU. Repeat troponin pending, repeat EKG with supraventricular rhythm. Repeat lactate pending. Dragon Disclaimer: Dragon Disclaimer: This electronic medical record was generated, in whole or in part, using a voice recognition dictation system. Departure Departure Referrals: NISREEN PANIAGUA MD (PCP) Scripts No Active Prescriptions or Reported Meds GAMAL KENNEDY MD February 19, 2022 06:49
[2022-02-19 06:53] LABS: ACETAMIN < 2 mcg/ml (10-30); ALBUMIN 4.7 g/dL (3.4-5.0); DIRECT BILIRUBIN 0.2 mg/dL (0.0-0.2); ETHANOL < 10 mg/dL (0-10); MAGNESIUM 2.3 mg/dL (1.8-2.4); SALIC 1.8 mg/dL (2.8-20.0); TOTAL BILIRUBIN 1.6 mg/dL (0.2-1.0); TOTAL PROTEIN 9.8 g/dL (6.4-8.2)
--- NOTE | 2022-02-19 06:54 | RAD ---
XR CHEST 1V SUPINE Clinical Indication: Reason: altered / Comparison: AP chest January 07, 2018. Findings: The cardiomediastinal silhouette is normal. Lungs are clear. There is no pneumothorax. No pleural eff usion is appreciated. No acute bone abnormality. IMPRESSION: No acute cardiopulmonary process. Electronically signed by: Omari Negrete MD (02/19/2022 6:52 AM) [facility]
[2022-02-19] MEDS ORDERED: IV NORMAL SALINE 1000ML BAG 1,000 ML IV ONE ×2 (07:15→09:45)
--- NOTE | 2022-02-19 07:15 | EKG ---
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
[2022-02-19 07:24] LABS: BASO % 0 % (0-3); EOS % 0 % (0-3); HEMATOCRIT 32.1 % (39.0-53.0); HEMOGLOBIN 10.8 g/dL (13.0-17.5); LYMPH # 0.2 x10^3/uL (1.0-4.8); LYMPH % 2 % (24-48); MEAN CORPUSCULAR HEMOGLOBIN 32 pg (25-35); MEAN CORPUSCULAR HGB CONC 34 g/dL (31-37); MEAN CORPUSCULAR VOLUME 95 fL (79-100); MONO % 11 % (0-9); NEUT # 8.1 x10^3/uL (1.8-7.7); NEUT % 87 % (31-73); PLATELET COUNT 88 x10^3/uL (140-400); RED BLOOD COUNT 3.37 x10^6/uL (4.30-5.70); RED CELL DISTRIBUTION WIDTH 14.3 % (11.5-14.5); WHITE BLOOD COUNT 9.2 x10^3/uL (4.0-11.0)
--- NOTE | 2022-02-19 07:53 | RAD ---
STUDY: CT head without contrast INDICATION: Altered mental status. COMPARISON: 12/18/2021 TECHNIQUE: Axial CT imaging through the head without the use of intravenous contrast. Sagittal and co barbara reformats were obtained. One or more of the following individualized dose reduction techniques were utilized for this examinat ion: 1. Automated exposure control 2. Adjustment of the mA and/or kV according to patient size 3. Use of iterative reconstruction technique. FINDINGS: No acute intracranial hemorrhage. No mass effect, midline shift or hydrocephalus. Blanco-white matter d ifferentiation is maintained. Intact calvarium. Normally aerated mastoid air cells and middle ears. Unchanged partially imaged para nasal sinuses with minimal mucosal thickening. IMPRESSION: No acute intracranial abnormality by CT. No change from 12/18/2021. Electronically signed by: LLOYD EISENBERG MD (02/19/2022 7:51 AM) [facility]
[2022-02-19 08:03] LABS: % BANDS 3 % (0-9); % LYMPHS 3 % (24-48); % MONOS 6 % (0-10); % SEGS 88 % (35-66); PLT ESTIMATE DECREASED (ADEQUATE)
[2022-02-19 08:06] LABS: AMORPHOUS SEDIMENT,UR PRESENT /HPF; BACTERIA,URINE MOD /HPF (0-FEW); RBC,URINE OCC /HPF (0-2); WBC,URINE OCC /HPF (0-4)
[2022-02-19 08:07] LABS: BARBITURATES NEG (NEG); BENZODIAZEPINES NEG (NEG); CANNABINOIDS NEG (NEG); COCAINE NEG (NEG); METHADONE NEG (NEG); OPIATES NEG (NEG); PHENCYCLIDINE NEG (NEG)
[2022-02-19 08:10] LABS: AMPHETAMINE/METHAMPHETAMINE NEG (NEG)
[2022-02-19 09:10] LABS: PROTHROMBIN TIME PATIENT 14.3 SEC (11.7-14.0)
[2022-02-19 10:33] LABS: CALCIUM 8.3 mg/dL (8.5-10.1); CREATININE 0.9 mg/dL (0.7-1.3); GFR 90.8
[2022-02-19 10:41] LABS: ALBUMIN 3.6 g/dL (3.4-5.0); ALBUMIN/GLOBULIN RATIO 0.9 (1.0-1.7); TOTAL BILIRUBIN 1.3 mg/dL (0.2-1.0); TOTAL PROTEIN 7.6 g/dL (6.4-8.2)
[2022-02-19 10:46] LABS: POTASSIUM 3.9 mmol/L (3.5-5.1)
[2022-02-19] MEDS ORDERED: PIP/TAZO PER PHARMACY MC PRN (11:15)
[2022-02-19] MEDS ORDERED: cloNIDine HCL 0.1 MG TABLET PO PRN (11:15)
[2022-02-19] MEDS ORDERED: chlordiazePOXIDE HCL 25 MG CAPSULE PO PRN ×2 (11:15)
[2022-02-19] MEDS: PIPERACILLIN/TAZOBACTAM 3.375 GM in IV NORMAL SALINE 50ML 50 ML IV SCH ×3 (11:19→23:10)
--- NOTE | 2022-02-19 12:05 | HP ---
DATE OF SERVICE: 02/19/2022 ADMIT DATE: 02/19/2022 CHIEF COMPLAINT: Alcohol withdrawal. HISTORY OF PRESENT ILLNESS: The patient is a pleasant 46-year-old male who drinks at least 15 beers a day plus hard liquor mixed with it. I have admitted him in the past with alcohol withdrawal. Once again, he presents with alcohol withdrawal. Apparently, his girlfriend made him he needs to quit drinking, so he has been trying, but now he is having severe withdrawal. He had a couple of seizures at home. When he got to the ER, he really was not responding well. He was very dehydrated. They gave him 4 liters of fluid. He also has a temperature of 103. I suspect he might have some sepsis. His girlfriend also states he has been having bright red blood per rectum. We are admitting the patient to the ICU. PAST MEDICAL HISTORY: Alcohol withdrawal and alcohol seizures. ALLERGIES: None. FAMILY HISTORY: Diabetes. SOCIAL HISTORY: He drinks heavily. No drugs. 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 MEDICATIONS: Reviewed, please refer to the MRAD. REVIEW OF SYSTEMS: Unable to obtain. He is sedated. PHYSICAL EXAMINATION: VITALS: Within normal limits and are stable. GENERAL: He is sedated. HEENT: Normal cephalic atraumatic, external auditory canals are patent EYES: Extraocular muscles are intact, pupils are equally round and reactive to light and accommodation MUSCULOSKELETAL: Well developed, well nourished, good range of motion ENDOCRINE: No thyromegaly was palpated LYMPHATICS: No cervical chain or axillary nodes were noted HEMATOPOIETIC: No bruising NECK: Supple, no JVD, no thyromegaly was noted. LUNGS: Clear to auscultation in all lung kim without rhonchi or wheezing. HEART: RRR, S1, S2 present. Peripheral pulses intact, no obvious murmurs were noted. ABDOMEN: Soft, nontender. Positive bowel sounds no organomegaly, normal bowel sounds. EXTREMITIES: Without any cyanosis, clubbing, or edema. Pedal pulses intact, Homans sign is negative. NEUROLOGIC: He is sedated. PSYCHIATRIC: He is sedated. SKIN: No ulcerations or rashes, good skin turgor, no jaundice. VASCULAR: Good capillary refill, neurovascular bundle appears to be intact. . LABORATORY DATA: White count 9, hemoglobin 10.8, platelets 88. Electrolytes: Sodium 137, potassium 3.9, chloride 100, bicarbonate 22, BUN 7, creatinine 0.9, glucose 125. AST high at 75. Ammonia high at 36. Troponin high at 145. Lactic acid 2.1. DIAGNOSTIC DATA: CT of the head negative. Chest x-ray negative. ASSESSMENT AND PLAN: Alcohol withdrawal seizures, fevers, lactic acidosis, anemia, thrombocytopenia and probable gastrointestinal bleed. The patient has been admitted. We will consult GI. IV proton pump inhibitors. Alcohol withdrawal protocol. ICU monitoring, home meds when possible, deep venous thrombosis prophylaxis, full code. Empiric IV Zosyn per pharmacy. administrative services officer consult for drug rehabilitation. Alcohol and drug rehabilitation. Long-term prognosis is guarded if he does not quit drinking. IRINA/AMRIT/LE DR: IRINA/yareli TID: [id number]
--- NOTE | 2022-02-19 12:16 | PDOC2 ---
GI CONSULT Date of Service: DATE: 02/19/22 TIME: 11:56 Reason For Consult: bright red blood per rectum anemia HPI: HPI: 46 y/o male w/ possible alcohol withdrawal seizure. Per 's discussion with nurse - pt was drinking whiskey, c/o constipation w/ blood in stools and abdominal pain - was taking Miralax, found at home with large amount of stool, "shaking." No bleeding or stools here. Pt unresponsive. PMH: PMH: alcohol-related seizures FH: Family History: Other (unable to obtain) Social History: Smoke: <1 pack per day (chewing tobacco) ALCOHOL: heavy ROS: unable to obtain Vitals: Vitals: Vital Signs Date Time Temp Pulse Resp B/P (MAP) Pulse Ox O2 Delivery O2 Flow Rate FiO2 02/19/22 10:04 120 16 131/84 (100) 97 Room Air 02/19/22 06:17 103.1 103.1 Labs: Labs: Laboratory Tests Test 02/19/22 06:20 02/19/22 06:30 02/19/22 07:05 02/19/22 07:50 Sodium Level 133 mmol/L (136-145) Potassium Level 5.4 mmol/L (3.5-5.1) Chloride Level 90 mmol/L (98-107) Carbon Dioxide Level 21 mmol/L (21-32) Anion Gap 22 (6-14) Blood Urea Nitrogen 10 mg/dL (8-26) Creatinine 1.4 mg/dL (0.7-1.3) Estimated GFR (Cockcroft-Gault) 54.6 Glucose Level 269 mg/dL (70-99) Lactic Acid Level 6.9 mmol/L (0.4-2.0) Calcium Level 9.9 mg/dL (8.5-10.1) Magnesium Level 2.3 mg/dL (1.8-2.4) Total Bilirubin 1.6 mg/dL (0.2-1.0) Direct Bilirubin 0.2 mg/dL (0.0-0.2) Aspartate Amino Transf (AST/SGOT) 91 U/L (15-37) Alanine Aminotransferase (ALT/SGPT) 52 U/L (16-63) Alkaline Phosphatase 86 U/L (46-116) Ammonia 36 mcmol/L (11-34) Creatine Kinase 286 U/L (39-308) Troponin I High Sensitivity 145 ng/L (4-75) Total Protein 9.8 g/dL (6.4-8.2) Albumin 4.7 g/dL (3.4-5.0) Lipase 118 U/L (73-393) Salicylates Level 1.8 mg/dL (2.8-20.0) Salicylate Last Dose Date Unknown Salicylate Last Dose Time Unknown Acetaminophen Level < 2 mcg/ml (10-30) Acetaminophen Last Dose Date Unknown Acetaminophen Last Dose Time Unknown Ethyl Alcohol Level < 10 mg/dL (0-10) O2 Saturation 92 % (92-99) Arterial Blood pH 7.40 (7.35-7.45) Arterial Blood pH (Temp corrected) 7.36 Arterial Blood pCO2 at Patient Temp 30 mmHg (35-46) Arterial Blood pCO2 (Temp correct) 33 mmHg Arterial Blood pO2 at Patient Temp 70 mmHg (75-108) Arterial Blood pO2 (Temp corrected) 83 mmHg Arterial Blood HCO3 18 mmol/L (21-28) Arterial Blood Base Excess -6 mmol/L (-3-3) FiO2 21 White Blood Count 9.2 x10^3/uL (4.0-11.0) Red Blood Count 3.37 x10^6/uL (4.30-5.70) Hemoglobin 10.8 g/dL (13.0-17.5) Hematocrit 32.1 % (39.0-53.0) Mean Corpuscular Volume 95 fL (79-100) Mean Corpuscular Hemoglobin 32 pg (25-35) Mean Corpuscular Hemoglobin Concent 34 g/dL (31-37) Red Cell Distribution Width 14.3 % (11.5-14.5) Platelet Count 88 x10^3/uL (140-400) Neutrophils (%) (Auto) 87 % (31-73) Lymphocytes (%) (Auto) 2 % (24-48) Monocytes (%) (Auto) 11 % (0-9) Eosinophils (%) (Auto) 0 % (0-3) Basophils (%) (Auto) 0 % (0-3) Neutrophils # (Auto) 8.1 x10^3/uL (1.8-7.7) Lymphocytes # (Auto) 0.2 x10^3/uL (1.0-4.8) Monocytes # (Auto) 1.0 x10^3/uL (0.0-1.1) Eosinophils # (Auto) 0.0 x10^3/uL (0.0-0.7) Basophils # (Auto) 0.0 x10^3/uL (0.0-0.2) Segmented Neutrophils % 88 % (35-66) Band Neutrophils % 3 % (0-9) Lymphocytes % 3 % (24-48) Monocytes % 6 % (0-10) Platelet Estimate Decreased (ADEQUATE) Prothrombin Time 14.3 SEC (11.7-14.0) Prothromb Time International Ratio 1.1 (0.8-1.1) Urine Collection Type U cath Urine Color (Auto) Light orange Urine Turbidity Turbid Urine pH (Auto) 5.5 (<5.0-8.0) Urine Specific [place] 1.017 (1.000-1.030) Urine Protein (Auto) 50 mg/dL (Negative) Urine Glucose (Auto)(UA) >=1000 mg/dL (Negative) Urine Ketones (Auto) 100 mg/dL (Negative) Urine Blood (Auto) Small (Negative) Urine Nitrite (Auto) Negative (Negative) Urine Bilirubin (Auto) Negative (Negative) Urine Urobilinogen (Auto) Normal mg/dL (Normal) Urine Leukocyte Esterase (Auto) Negative (Negative) Urine RBC Occ /HPF (0-2) Urine WBC Occ /HPF (0-4) Urine Amorphous Sediment Present /HPF Urine Bacteria Mod /HPF (0-FEW) Urine Opiates Screen Neg (NEG) Urine Methadone Screen Neg (NEG) Urine Barbiturates Neg (NEG) Urine Phencyclidine Screen Neg (NEG) Urine Amphetamine/Methamphetamine Neg (NEG) Urine Benzodiazepines Screen Neg (NEG) Urine Cocaine Screen Neg (NEG) Urine Cannabinoids Screen Neg (NEG) Urine Ethyl Alcohol Neg (NEG) Test 02/19/22 10:00 Sodium Level 137 mmol/L (136-145) Potassium Level 3.9 mmol/L (3.5-5.1) Chloride Level 100 mmol/L (98-107) Carbon Dioxide Level 22 mmol/L (21-32) Anion Gap 15 (6-14) Blood Urea Nitrogen 7 mg/dL (8-26) Creatinine 0.9 mg/dL (0.7-1.3) Estimated GFR (Cockcroft-Gault) 90.8 BUN/Creatinine Ratio 8 (6-20) Glucose Level 125 mg/dL (70-99) Lactic Acid Level 2.1 mmol/L (0.4-2.0) Calcium Level 8.3 mg/dL (8.5-10.1) Total Bilirubin 1.3 mg/dL (0.2-1.0) Aspartate Amino Transf (AST/SGOT) 75 U/L (15-37) Alanine Aminotransferase (ALT/SGPT) 38 U/L (16-63) Alkaline Phosphatase 65 U/L (46-116) Troponin I High Sensitivity 155 ng/L (4-75) Total Protein 7.6 g/dL (6.4-8.2) Albumin 3.6 g/dL (3.4-5.0) Albumin/Globulin Ratio 0.9 (1.0-1.7) Allergies: Coded Allergies: No Known Drug Allergies (Unverified , 04/20/14) Medications: Current Medications Medications (Trade) Dose Ordered Sig/Candi Route PRN Reason Start Time Stop Time Status Last Admin Dose Admin Lorazepam (Ativan Inj) 4 mg 1X ONCE IV 02/19/22 06:15 02/19/22 06:16 DC 02/19/22 06:32 Multivitamins 10 ml/Thiamine HCl 100 mg/Folic Acid 1 mg/Sodium Chloride 1,011.2 ml @ 1,000 mls/ hr 1X ONCE IV 02/19/22 06:30 02/19/22 07:30 DC 02/19/22 06:36 Ringer's Solution 1,000 ml @ 1,000 mls/hr 1X ONCE IV 02/19/22 06:15 02/19/22 07:14 DC 02/19/22 06:15 Acetaminophen (Tylenol Supp) 650 mg 1X ONCE SD 02/19/22 06:15 02/19/22 06:22 DC 02/19/22 06:36 Levetiracetam 100 ml @ 400 mls/hr 1X ONCE IV 02/19/22 06:30 02/19/22 06:44 DC 02/19/22 06:33 Sodium Chloride 1,000 ml @ 1,000 mls/hr 1X ONCE IV 02/19/22 07:15 02/19/22 08:14 DC 02/19/22 07:30 Sodium Chloride 1,000 ml @ 1,000 mls/hr 1X ONCE IV 02/19/22 09:45 02/19/22 10:44 DC 02/19/22 09:45 Lorazepam (Ativan Inj) 2 mg 1X ONCE IVP 02/19/22 10:00 02/19/22 10:01 DC 02/19/22 10:08 Acetaminophen (Tylenol Supp) 650 mg 1X ONCE SD 02/19/22 10:15 02/19/22 10:18 DC 02/19/22 10:15 Piperacillin Sod/ Tazobactam Sod 3.375 gm/Sodium Chloride 50 ml @ 100 mls/hr Q6HRS IV 02/19/22 12:00 02/19/22 11:19 Imaging: Imaging: CXR IMPRESSION: No acute cardiopulmonary process. Head CT IMPRESSION: No acute intracranial abnormality by CT. No change from 12/18/2021. PE: GEN: NAD HEENT: Atraumatic LUNGS: CTAB HEART: tachycardic ABD: quiet BS, soft EXTREMITY: No edema SKIN: No rashes, no jaundice NEURO/PSYCH: grunts with deep palpation of abdomen A/P: A/P: Possible seizure, h/o alcohol abuse Fever, lactic acidosis (better), CHEMA (resolved), elevated troponin Mild anemia, thrombocytopenia - noted in past Mildly elevated bilirubin and AST (better), barely elevated ammonia Recent constipation, blood in stools -- Empiric PPI, check iron and KUB for completeness, check KUB for completeness, and observe. Consider liver imaging. Outpt colonoscopy. KATHRYN ARELLANO February 19, 2022 12:16
[2022-02-19] MEDS: IV NORMAL SALINE 1000ML BAG 1,000 ML IV SCH ×2 (13:00→19:34)
--- NOTE | 2022-02-19 13:22 | RAD ---
EXAM: Abdomen, single view. HISTORY: Constipation. Pain. COMPARISON: None. FINDINGS: A frontal view of the abdomen is obtained. There are prominent air-filled loops of small an d large bowel throughout the abdomen, primarily within the right mid abdomen. There is no transition point. IMPRESSION: Prominent air-filled loops of small and large bowel throughout the abdomen. This can be s een with ileus. There is no convincing transition point to suggest obstruction. Electronically signed by: Carolyn Luo MD (02/19/2022 1:20 PM) [id number]
[2022-02-20] VITALS (14 sets, daily range): BP systolic 99–153; BP diastolic 66–87
[2022-02-20 04:26] LABS: HEMATOCRIT 28.2 % (39.0-53.0); HEMOGLOBIN 9.4 g/dL (13.0-17.5); RED BLOOD COUNT 2.94 x10^6/uL (4.30-5.70); RED CELL DISTRIBUTION WIDTH 14.4 % (11.5-14.5); WHITE BLOOD COUNT 4.3 x10^3/uL (4.0-11.0)
[2022-02-20 04:48] LABS: ALBUMIN 3.3 g/dL (3.4-5.0); ALBUMIN/GLOBULIN RATIO 0.9 (1.0-1.7); CALCIUM 8.5 mg/dL (8.5-10.1); CREATININE 0.9 mg/dL (0.7-1.3); GFR 90.8; TOTAL BILIRUBIN 1.7 mg/dL (0.2-1.0)
[2022-02-20] MEDS: IV NORMAL SALINE 1000ML BAG 1,000 ML IV SCH ×3 (05:00→22:45)
[2022-02-20] MEDS: PIPERACILLIN/TAZOBACTAM 3.375 GM in IV NORMAL SALINE 50ML 50 ML IV SCH ×3 (05:14→18:19)
[2022-02-20] MEDS: PANTOPRAZOLE IV PUSH 40 MG VIAL. IVP SCH (07:23)
[2022-02-20] MEDS: MULTIVIT INFUSN,ADULT 4,VIT K 10 ML, THIAMINE INJ 100 MG, FOLIC ACID INJ 1 MG in IV NOR... IV SCH (10:04)
--- NOTE | 2022-02-20 10:22 | PDOC ---
[facility] PROGRESS NOTE Date of Service DOS: DATE: 02/20/22 TIME: 10:21 Chief Complaint Chief Complaint Alcohol withdrawal seizures, fevers, lactic acidosis, anemia, thrombocytopenia and probable gastrointestinal bleed. History of Present Illness History of Present Illness 02/20/2022 Patient seen and examined in the ICU He apparently was trying to leave AGAINST MEDICAL ADVICE last night Discussed with RN Discussed with case management Chart reviewed Vitals/I&O Vitals/I&O: Vital Signs Date Time Temp Pulse Resp B/P (MAP) Pulse Ox O2 Delivery O2 Flow Rate FiO2 02/20/22 08:00 Room Air 02/20/22 08:00 104 18 110/71 (84) 100 02/20/22 07:00 98.1 98.1 I & O 02/19/22 02/19/22 02/20/22 15:00 23:00 07:00 Intake Total 3011.2 ml 1100 ml 1462 ml Output Total 700 ml 1650 ml 690 ml Balance 2311.2 ml -550 ml 772 ml Physical Exam General: No acute distress Heart: Regular rate Lungs: Clear, Other Abdomen: Normal bowel sounds Extremities: No clubbing Skin: No rashes Labs Labs: Laboratory Tests Test 02/20/22 04:00 White Blood Count 4.3 x10^3/uL (4.0-11.0) Red Blood Count 2.94 x10^6/uL (4.30-5.70) Hemoglobin 9.4 g/dL (13.0-17.5) Hematocrit 28.2 % (39.0-53.0) Mean Corpuscular Volume 96 fL (79-100) Mean Corpuscular Hemoglobin 32 pg (25-35) Mean Corpuscular Hemoglobin Concent 33 g/dL (31-37) Red Cell Distribution Width 14.4 % (11.5-14.5) Platelet Count 53 x10^3/uL (140-400) Sodium Level 140 mmol/L (136-145) Potassium Level 3.0 mmol/L (3.5-5.1) Chloride Level 104 mmol/L (98-107) Carbon Dioxide Level 20 mmol/L (21-32) Anion Gap 16 (6-14) Blood Urea Nitrogen 6 mg/dL (8-26) Creatinine 0.9 mg/dL (0.7-1.3) Estimated GFR (Cockcroft-Gault) 90.8 BUN/Creatinine Ratio 7 (6-20) Glucose Level 74 mg/dL (70-99) Calcium Level 8.5 mg/dL (8.5-10.1) Total Bilirubin 1.7 mg/dL (0.2-1.0) Aspartate Amino Transf (AST/SGOT) 169 U/L (15-37) Alanine Aminotransferase (ALT/SGPT) 66 U/L (16-63) Alkaline Phosphatase 53 U/L (46-116) Total Protein 7.0 g/dL (6.4-8.2) Albumin 3.3 g/dL (3.4-5.0) Albumin/Globulin Ratio 0.9 (1.0-1.7) Assessment and Plan Assessmemt and Plan Problems Medical Problems: (1) Alcohol abuse Status: Acute Alcohol withdrawal seizures, fevers, lactic acidosis, anemia, thrombocytopenia and probable gastrointestinal bleed. The patient has Plan Alcohol withdrawal protocol GI following Trend labs Home meds DVT prophylaxis Full code Comment Review of Relevant I have reviewed the following items maegan (where applicable) has been applied. Medications: Current Medications Medications (Trade) Dose Ordered Sig/Candi Route PRN Reason Start Time Stop Time Status Last Admin Dose Admin Piperacillin Sod/ Tazobactam Sod 3.375 gm/Sodium Chloride 50 ml @ 100 mls/hr Q6HRS IV 02/19/22 12:00 02/20/22 05:14 Multivitamins 10 ml/Thiamine HCl 100 mg/Folic Acid 1 mg/Sodium Chloride 1,011.2 ml @ 100 mls/ hr DAILY IV 02/20/22 09:00 02/24/22 19:07 02/20/22 10:04 Lorazepam (Ativan Inj) 2 mg PRN Q15MIN PRN IV SEE COMMENTS 02/19/22 11:15 02/20/22 04:58 Pantoprazole Sodium (PROTONIX VIAL for IV PUSH) 40 mg DAILYAC IVP 02/20/22 07:30 02/20/22 07:23 Sodium Chloride 1,000 ml @ 125 mls/hr Q8H IV 02/19/22 14:30 02/20/22 05:00 Justifications for Admission Other Justification SHANEL HOWARD III DO February 20, 2022 10:22
--- NOTE | 2022-02-20 10:46 | PDOC ---
Date of Service: DATE: 02/20/22 TIME: 10:42 Subjective: Subjective: I asked about belly pain - he said "my mouthy hurts" and "I'm going home later." Objective: Objective: D/w nurse - no bleeding. Vital Signs: Vital Signs Date Time Temp Pulse Resp B/P (MAP) Pulse Ox O2 Delivery O2 Flow Rate FiO2 02/20/22 08:00 Room Air 02/20/22 08:00 104 18 110/71 (84) 100 02/20/22 07:00 98.1 98.1 Labs: Laboratory Tests Test 02/20/22 04:00 White Blood Count 4.3 x10^3/uL Red Blood Count 2.94 x10^6/uL Hemoglobin 9.4 g/dL Hematocrit 28.2 % Mean Corpuscular Volume 96 fL Mean Corpuscular Hemoglobin 32 pg Mean Corpuscular Hemoglobin Concent 33 g/dL Red Cell Distribution Width 14.4 % Platelet Count 53 x10^3/uL Sodium Level 140 mmol/L Potassium Level 3.0 mmol/L Chloride Level 104 mmol/L Carbon Dioxide Level 20 mmol/L Anion Gap 16 Blood Urea Nitrogen 6 mg/dL Creatinine 0.9 mg/dL Estimated GFR (Cockcroft-Gault) 90.8 BUN/Creatinine Ratio 7 Glucose Level 74 mg/dL Calcium Level 8.5 mg/dL Total Bilirubin 1.7 mg/dL Aspartate Amino Transf (AST/SGOT) 169 U/L Alanine Aminotransferase (ALT/SGPT) 66 U/L Alkaline Phosphatase 53 U/L Total Protein 7.0 g/dL Albumin 3.3 g/dL Albumin/Globulin Ratio 0.9 PE: GEN: NAD LUNGS: CTAB HEART: mildly tachycardic ABD: NS/ND/NT NEURO/PSYCH: more awake, mumbles A/P: Possible seizure Mild anemia (not iron deficient), thrombocytopenia - noted in past, some drift since admission, no obvious bleeding Mildly elevated bilirubin and AST, h/o alcohol abuse Blood in stools - prior to admission, no recurrence -- Withdrawal/seizure precautions per primary. Stable GI-berry. Okay to advance diet as mental status allows. Change to PO PPI as able. Outpt colonoscopy. Stop alcohol. Justicifation of Admission Dx: Justifications for Admission: Justification of Admission Dx: N/A KATHRYN ARELLANO February 20, 2022 10:46
--- NOTE | 2022-02-20 12:35 | NUR ---
1210 Patient assisted to the commode with 1 assist; disconnected IV line and blood pressure cuff; call light put in patient's hands and instructed to push the red nurse button (pointing directly to button) when finished and instructed "do not get up without assistance because you are too weak and may injure yourself." Curtain cracked to be able to visualize patient. 1215: checked on patient to see if he was finished having a BM on the bedside commode. Patient states he is still working to have a bm. Instructed patient to use the call light when finished and not to get up on his own. 1220: checked patient to determine if he had was finished using the commode. Patient states he is still trying to go. Verified patient had call light and instructed him to call using the red nurse button to assist when finished and not to get up without asisstance. Patient states, "I'm not getting up." 12:25 Patient found on the floor by Yarelis Hernandez RN after noticing patient rocking on commode. When she arrived in the room patient was sitting on the floor. Did not appear to have any injuries and denies any pain or injury.
--- NOTE | 2022-02-20 15:36 | NUR ---
Patient in bed with exit alarm on. Attempting to sit up in the bed and get out of bed to void. Explained to patient that he isn't able to get up without asisst. Informed him that he has a urinary catheter in place so no need to get up to urinate. Patient asked what to do if he has to have BM and instructed patient to call nurse to be assisted with the bedpan since he is weak and while on the commode earlier he got off the commode and sat on the floor. Patient states, "I was not on the floor." Patient's short term memory is extremely poor. Call light in patient's hands.
[2022-02-20] MEDS ORDERED: ATROPINE 0.5 MG/5 ML DISP.SYRINGE. IV PRN (22:00)
[2022-02-20] MEDS ORDERED: IV NORMAL SALINE 500ML BAG 500 ML IV PRN (22:00)
[2022-02-20] MEDS: DEXMEDETOMIDINE 400 MCG in IV NORMAL SALINE 100ML 96 ML IV PRN (22:10)
--- NOTE | 2022-02-20 22:20 | NUR ---
Pt had been given 2 doses of ativan and a dose of librium but continued to escalate behaviors. Attempting to get out of bed, yelling and swinging at staff, making inappropriate comments "its Wednesday the so its the day when all the guys can go out and kill all the girls", and laughing. Also is asking where his beer and his chewing tobacco is and ordering nurse to go get him some, makes attempts to pull nurse into bed with him when he is instructed to sit down in bed. CIWA 25 at this time after a 3rd dose of Ativan, precedex gtt ordered, bolus given, and started.
[2022-02-21] VITALS (20 sets, daily range): BP systolic 131–151; BP diastolic 79–96
[2022-02-21] MEDS: PIPERACILLIN/TAZOBACTAM 3.375 GM in IV NORMAL SALINE 50ML 50 ML IV SCH ×5 (01:03→23:59)
[2022-02-21] MEDS: IV NORMAL SALINE 1000ML BAG 1,000 ML IV SCH ×2 (05:38→15:49)
--- NOTE | 2022-02-21 06:23 | EKG ---
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
[2022-02-21] MEDS: DEXMEDETOMIDINE 400 MCG in IV NORMAL SALINE 100ML 96 ML IV PRN ×2 (06:55→15:41)
[2022-02-21] MEDS: HALOPERIDOL LACTATE 5 MG/ML VIAL. IVP PRN ×3 (09:20→18:05)
[2022-02-21] MEDS: PANTOPRAZOLE IV PUSH 40 MG VIAL. IVP SCH (09:24)
[2022-02-21] MEDS: MULTIVIT INFUSN,ADULT 4,VIT K 10 ML, THIAMINE INJ 100 MG, FOLIC ACID INJ 1 MG in IV NOR... IV SCH (09:24)
--- NOTE | 2022-02-21 11:06 | PDOC ---
[facility] [facility] PROGRESS NOTE Date of Service DOS: DATE: 02/21/22 TIME: 11:06 Chief Complaint Chief Complaint Alcohol withdrawal seizures, fevers, lactic acidosis, anemia, thrombocytopenia and probable gastrointestinal bleed. History of Present Illness History of Present Illness 02/21/2022 Patient seen and examined in the ICU He is restless and confused Discussed with RN Chart reviewed 02/20/2022 Patient seen and examined in the ICU He apparently was trying to leave AGAINST MEDICAL ADVICE last night Discussed with RN Discussed with case management Chart reviewed Vitals/I&O Vitals/I&O: Vital Signs Date Time Temp Pulse Resp B/P (MAP) Pulse Ox O2 Delivery O2 Flow Rate FiO2 02/21/22 07:15 94.3 94.3 02/21/22 07:00 44 10 135/89 99 Room Air I & O 02/20/22 02/20/22 02/21/22 15:00 23:00 07:00 Intake Total 275 ml 1000 ml 1211 ml Output Total 800 ml 1100 ml Balance 275 ml 200 ml 111 ml Physical Exam General: No acute distress Heart: Regular rate Lungs: Clear, Other Abdomen: Normal bowel sounds Extremities: No clubbing Skin: No rashes Assessment and Plan Assessmemt and Plan Problems Medical Problems: (1) Alcohol abuse Status: Acute Alcohol withdrawal seizures, fevers, lactic acidosis, anemia, thrombocytopenia and probable gastrointestinal bleed. The patient has Plan ICU monitor Alcohol withdrawal protocol GI following Trend labs Home meds DVT prophylaxis Full code Comment Review of Relevant I have reviewed the following items maegan (where applicable) has been applied. Medications: Current Medications Medications (Trade) Dose Ordered Sig/Candi Route PRN Reason Start Time Stop Time Status Last Admin Dose Admin Dexmedetomidine HCl 400 mcg/ Sodium Chloride 100 ml @ 2.615 mls/ hr CONT PRN IV PER PROTOCOL 02/20/22 22:00 02/21/22 06:55 Justifications for Admission Other Justification SHANEL HOWARD III DO February 21, 2022 11:06
[2022-02-22] VITALS: BP 160/97
[2022-02-22] MEDS: DEXMEDETOMIDINE 400 MCG in IV NORMAL SALINE 100ML 96 ML IV PRN ×4 (00:16→19:01)
[2022-02-22] MEDS: IV NORMAL SALINE 1000ML BAG 1,000 ML IV SCH ×3 (01:15→18:21)
[2022-02-22 04:00] VITALS: BP 139/80
[2022-02-22] MEDS: PIPERACILLIN/TAZOBACTAM 3.375 GM in IV NORMAL SALINE 50ML 50 ML IV SCH ×2 (05:44→11:47)
[2022-02-22] MEDS: HALOPERIDOL LACTATE 5 MG/ML VIAL. IVP PRN ×3 (07:10→15:33)
[2022-02-22 08:00] VITALS: BP 158/90
[2022-02-22] MEDS: PANTOPRAZOLE IV PUSH 40 MG VIAL. IVP SCH (08:06)
[2022-02-22] MEDS: diphenhydrAMINE 50 MG/ML VIAL IVP PRN ×2 (08:18→11:34)
[2022-02-22] MEDS: MULTIVIT INFUSN,ADULT 4,VIT K 10 ML, THIAMINE INJ 100 MG, FOLIC ACID INJ 1 MG in IV NOR... IV SCH (08:37)
[2022-02-22 12:00] VITALS: BP 162/95
--- NOTE | 2022-02-22 13:08 | PDOC ---
[facility] [facility] PROGRESS NOTE Date of Service DOS: DATE: 02/22/22 TIME: 13:07 Chief Complaint Chief Complaint Alcohol withdrawal seizures, fevers, lactic acidosis, anemia, thrombocytopenia and probable gastrointestinal bleed. History of Present Illness History of Present Illness 02/22/2022 Patient seen and examined in the ICU He remains confused and restless Discussed with his RN We are currently using Precedex Ativan and Haldol Has a banana bag hanging as well 02/21/2022 Patient seen and examined in the ICU He is restless and confused Discussed with RN Chart reviewed 02/20/2022 Patient seen and examined in the ICU He apparently was trying to leave AGAINST MEDICAL ADVICE last night Discussed with RN Discussed with case management Chart reviewed Vitals/I&O Vitals/I&O: Vital Signs Date Time Temp Pulse Resp B/P (MAP) Pulse Ox O2 Delivery O2 Flow Rate FiO2 02/22/22 08:00 96.3 64 18 158/90 98 Room Air 96.3 I & O 02/21/22 02/21/22 02/22/22 15:00 23:00 07:00 Intake Total 50 ml 2528.51 ml 1545.16 ml Output Total 880 ml 705 ml 1045 ml Balance -830 ml 1823.51 ml 500.16 ml Physical Exam General: No acute distress Heart: Regular rate Lungs: Clear, Other Abdomen: Normal bowel sounds Extremities: No clubbing Skin: No rashes Assessment and Plan Assessmemt and Plan Problems Medical Problems: (1) Alcohol abuse Status: Acute Alcohol withdrawal seizures, fevers, lactic acidosis, anemia, thrombocytopenia and probable gastrointestinal bleed. The patient has Plan ICU monitor Alcohol withdrawal protocol Continue Ativan Haldol and Precedex GI following Trend labs Home meds DVT prophylaxis Full code Long-term prognosis guarded if he does not quit drinking Comment Review of Relevant I have reviewed the following items maegan (where applicable) has been applied. Justifications for Admission Other Justification SHANEL HOWARD III DO February 22, 2022 13:08
[2022-02-22 16:00] VITALS: BP 143/87
[2022-02-22 20:00] VITALS: BP 169/94
[2022-02-23] VITALS: BP 161/88
[2022-02-23] MEDS: IV NORMAL SALINE 1000ML BAG 1,000 ML IV SCH ×4 (02:17→19:44)
[2022-02-23] MEDS: DEXMEDETOMIDINE 400 MCG in IV NORMAL SALINE 100ML 96 ML IV PRN (03:54)
[2022-02-23 04:00] VITALS: BP 158/98
[2022-02-23 08:00] VITALS: BP 154/94
[2022-02-23] MEDS: PANTOPRAZOLE IV PUSH 40 MG VIAL. IVP SCH (08:01)
[2022-02-23] MEDS: MULTIVIT INFUSN,ADULT 4,VIT K 10 ML, THIAMINE INJ 100 MG, FOLIC ACID INJ 1 MG in IV NOR... IV SCH (09:14)
--- NOTE | 2022-02-23 11:15 | PDOC ---
[facility] PROGRESS NOTE Date of Service DOS: DATE: 02/23/22 TIME: 11:14 Chief Complaint Chief Complaint Alcohol withdrawal seizures, fevers, lactic acidosis, anemia, thrombocytopenia and probable gastrointestinal bleed. History of Present Illness History of Present Illness 02/23/2022 Patient seen and examined He is a little more alert today despite being on Precedex he is able to talk to me He has a friend here Davin Discussed with RN Discussed with case management Chart reviewed We will transfer out of ICU if we can get him off the Precedex today 02/22/2022 Patient seen and examined in the ICU He remains confused and restless Discussed with his RN We are currently using Precedex Ativan and Haldol Has a banana bag hanging as well 02/21/2022 Patient seen and examined in the ICU He is restless and confused Discussed with RN Chart reviewed 02/20/2022 Patient seen and examined in the ICU He apparently was trying to leave AGAINST MEDICAL ADVICE last night Discussed with RN Discussed with case management Chart reviewed Vitals/I&O Vitals/I&O: Vital Signs Date Time Temp Pulse Resp B/P (MAP) Pulse Ox O2 Delivery O2 Flow Rate FiO2 02/23/22 08:00 Room Air 02/23/22 08:00 97.2 85 18 154/94 98 97.2 I & O 02/22/22 02/22/22 02/23/22 15:00 23:00 07:00 Intake Total 50 ml 2774 ml 1441.50 ml Output Total 2365 ml 955 ml 1725 ml Balance -2315 ml 1819 ml -283.50 ml Physical Exam General: No acute distress Heart: Regular rate Lungs: Clear, Other Abdomen: Normal bowel sounds Extremities: No clubbing Skin: No rashes Assessment and Plan Assessmemt and Plan Problems Medical Problems: (1) Alcohol abuse Status: Acute Alcohol withdrawal seizures, fevers, lactic acidosis, anemia, thrombocytopenia and probable gastrointestinal bleed. The patient has Plan ICU monitor for now Hope to stop the Precedex and transfer out of ICU later today if possible Alcohol withdrawal protocol Continue Ativan Haldol and Precedex GI following Trend labs Home meds DVT prophylaxis Full code Long-term prognosis guarded if he does not quit drinking Hopefully we can get him home tomorrow if we can get him off the Precedex Comment Review of Relevant I have reviewed the following items maegan (where applicable) has been applied. Justifications for Admission Other Justification SHANEL HOWARD III DO February 23, 2022 11:15
[2022-02-23 12:00] VITALS: BP 73/61
--- NOTE | 2022-02-23 12:28 | PDOC ---
Date of Service: DATE: 02/23/22 TIME: 12:25 Subjective: Subjective: Wants to go home, says he can recover there. No GI complaints. Objective: Objective: No GI concerns per nurse, has been hallucinating. Eating better, no bleeding. Vital Signs: Vital Signs Date Time Temp Pulse Resp B/P (MAP) Pulse Ox O2 Delivery O2 Flow Rate FiO2 02/23/22 12:00 97.9 108 18 73/61 99 Room Air 97.9 PE: GEN: NAD LUNGS: CTAB HEART: RRR ABD: S/ND/NT NEURO/PSYCH: A & O 3 A/P: Possible seizure/alcohol withdrawal Mild anemia (not iron deficient), thrombocytopenia, elevated LFTs Hypokalemia - checked 02/20, per primary Blood in stools - reported prior to admission -- Mental status biggest issue. Continue PPI (change to PO), plan for outpt colonoscopy. Justicifation of Admission Dx: Justifications for Admission: Justification of Admission Dx: N/A KATHRYN ARELLANO February 23, 2022 12:28
[2022-02-23 16:00] VITALS: BP 73/61
[2022-02-23 20:00] VITALS: BP 140/72
[2022-02-24] MEDS: IV NORMAL SALINE 1000ML BAG 1,000 ML IV SCH (03:02)
[2022-02-24] MEDS ORDERED: PANTOPRAZOLE 40 MG TABLET.DR. PO SCH (07:30)
[2022-02-24] MEDS: MULTIVIT INFUSN,ADULT 4,VIT K 10 ML, THIAMINE INJ 100 MG, FOLIC ACID INJ 1 MG in IV NOR... IV SCH (08:30)
--- NOTE | 2022-02-24 11:07 | PDOC ---
Date of Service: DATE: 02/24/22 TIME: 11:04 Subjective: Subjective: Watching tv. Says he's been eating three meals a day and putting newspaper in the garage and feeding the animals. Wants to go home because all he does in lay around anyway. Says he can take care of himself. Objective: Objective: D/w nurse - impulsive, had three stools w/o blood overnight. Vital Signs: Vital Signs Date Time Temp Pulse Resp B/P (MAP) Pulse Ox O2 Delivery O2 Flow Rate FiO2 02/24/22 08:00 Room Air 02/23/22 20:00 99.3 125 18 140/72 97 99.3 PE: GEN: NAD LUNGS: CTAB HEART: tachycardic ABD: S/ND/NT NEURO/PSYCH: confused A/P: Possible seizure/alcohol withdrawal Mild anemia (not iron deficient), thrombocytopenia, elevated LFTs, hypokalemia Blood in stools - not an issue here -- Mental status still an issue. Check interval labs. Justicifation of Admission Dx: Justifications for Admission: Justification of Admission Dx: N/A KATHRYN ARELLANO February 24, 2022 11:07
[2022-02-24] MEDS ORDERED: PANT40TA77 PO (11:11)
--- NOTE | 2022-02-24 12:40 | PDOC ---
[facility] PROGRESS NOTE Date of Service DOS: DATE: 02/24/22 TIME: 12:40 Chief Complaint Chief Complaint Alcohol withdrawal seizures, fevers, lactic acidosis, anemia, thrombocytopenia and probable gastrointestinal bleed. History of Present Illness History of Present Illness 02/24/2022 Patient seen and examined Discussed with RN Chart reviewed He is approaching his baseline We will go ahead and discharge 02/23/2022 Patient seen and examined He is a little more alert today despite being on Precedex he is able to talk to me He has a friend here Davin Discussed with RN Discussed with case management Chart reviewed We will transfer out of ICU if we can get him off the Precedex today 02/22/2022 Patient seen and examined in the ICU He remains confused and restless Discussed with his RN We are currently using Precedex Ativan and Urszula Has a banana bag hanging as well 02/21/2022 Patient seen and examined in the ICU He is restless and confused Discussed with RN Chart reviewed 02/20/2022 Patient seen and examined in the ICU He apparently was trying to leave AGAINST MEDICAL ADVICE last night Discussed with RN Discussed with case management Chart reviewed Vitals/I&O Vitals/I&O: Vital Signs Date Time Temp Pulse Resp B/P (MAP) Pulse Ox O2 Delivery O2 Flow Rate FiO2 02/24/22 08:00 Room Air 02/23/22 20:00 99.3 125 18 140/72 97 99.3 I & O 02/23/22 02/23/22 02/24/22 15:00 23:00 07:00 Intake Total 1000 ml 1884.82 ml Output Total 775 ml 1275 ml Balance 225 ml 609.82 ml Physical Exam General: No acute distress Heart: Regular rate Lungs: Clear, Other Abdomen: Normal bowel sounds Extremities: No clubbing Skin: No rashes Assessment and Plan Assessmemt and Plan Problems Medical Problems: (1) Alcohol abuse Status: Acute Alcohol withdrawal seizures, fevers, lactic acidosis, anemia, thrombocytopenia and probable gastrointestinal bleed. The patient has Plan Discharge see dictated Comment Review of Relevant I have reviewed the following items maegan (where applicable) has been applied. Medications: Current Medications Medications (Trade) Dose Ordered Sig/Candi Route PRN Reason Start Time Stop Time Status Last Admin Dose Admin Pantoprazole Sodium (Protonix) 40 mg DAILYAC PO 02/24/22 07:30 02/24/22 07:51 Justifications for Admission Other Justification SHANEL HOWARD III DO February 24, 2022 12:40
--- NOTE | 2022-02-24 23:27 | DS ---
DATE OF DISCHARGE: 02/24/2022 ADMITTING DIAGNOSIS: Alcohol withdrawal with alcohol withdrawal seizures. DISCHARGE DIAGNOSES: Resolving alcohol withdrawal, resolving alcohol withdrawal seizures, anemia, thrombocytopenia, history of gastrointestinal bleed. HOSPITAL COURSE: The patient is a pleasant 46-year-old male who drinks too much. His girlfriend told him he need to quit drinking or she might leave. He quit drinking, then he had seizures and alcohol withdrawal. We gave him alcohol withdrawal protocol including vitamins and benzos and fluids. ICU monitoring. Seizure precautions. Over the next 5 days, he slowly returned to his baseline. Today, I saw and examined him. He is back up in the chair, wanting to go home. We plan to discharge. DISPOSITION: Home. ACTIVITY: As tolerated. DIET: Low sodium. DISCHARGE MEDICATIONS: Please see the MRAD. TOTAL TIME: 32 minutes. IRINA/CRISS/LISSETH DR: Viry TID: [id number]
== END 2022-02-24 12:20 | disposition home or self-care (01) | DRG 101 ==
LOC: ER 05:58 → 1 WEST ICU 10:00
PROVIDERS: ADMIT Internal Medicine; ATTEND Internal Medicine
DX: G40.89 Other seizures (principal); F10.239 Alcohol dependence with withdrawal, unspecified; E87.2 Acidosis; R17 Unspecified jaundice; D64.9 Anemia, unspecified; D69.6 Thrombocytopenia, unspecified; E86.0 Dehydration; F17.210 Nicotine dependence, cigarettes, uncomplicated; K59.00 Constipation, unspecified; Z83.3 Family history of diabetes mellitus
CPT/HCPCS: 36415; 36600; 70450; 71045; 74018; 80048; 80053; 80076; 80307; 80329; 81001; 82140; 82550; 82805; 83540; 83550; 83605; 83690; 83735; 84484; 85007; 85025; 85027; 85610; 93005; 96365; 96366; 96375; 96376; C9113; G0480; J1200; J1630; J2060; J2543; J3411; J3490; J7030; J7120; 97116-GP; 97535-GO; 99285-25; G0378